=== PATIENT | male | born 1940 | race Caucasian/White ===

== ENCOUNTER 2017-07-05 07:48 | Emergency (ER) | payer MEDICARE ==
[~2017-07-05] VITALS: Ht 175.3 cm; Wt 70.0 kg
[~2017-07-05 07:48] MED LIST: LISI-360 PO
[2017-07-05 07:56] VITALS: BP 158/81; PULSE 68; RESP 18; TEMP 97.9; O2SAT 97
--- NOTE | 2017-07-05 08:43 | RADRPT ---
EXAM DATE/TIME: 07/05/2017 08:20 [facility] COMPARISON: CT BRAIN W/O CONTRAST, August 25, 2013, 17:18. INDICATIONS : Fall, left eye hematoma. Increased confusion. RADIATION DOSE: 34.60 CTDIvol (mGy) MEDICAL HISTORY : Cardiovascular disease. Hypertension. SURGICAL HISTORY : None. ENCOUNTER: Initial ACUITY: 2 days PAIN SCALE: 5/10 LOCATION: Left cranial TECHNIQUE: Multiple contiguous axial images were obtained of the head. Using automated exposure control and adj ustment of the mA and/or kV according to patient size, radiation dose was kept as low as reasonably a chievable to obtain optimal diagnostic quality images. DICOM format image data is available electro nically for review and comparison. FINDINGS: CEREBRUM: The ventricles are mildly prominent for age. However, they appear to be about the same compared to th e prior exam from 2012. No evidence of midline shift, mass lesion, hemorrhage or acute infarction. T here is a stable old infarct in the right basal ganglia. No extra-axial fluid collections are seen. T here is bilateral chronic white matter changes. There is an area of decreased density in the posterio r left parietal lobe just posterior to the posterior horn of the lateral left ventricle. This is most likely an old area of infarction. POSTERIOR FOSSA: The cerebellum and brainstem are intact. The 4th ventricle is midline. The cerebellopontine angle i s unremarkable. EXTRACRANIAL: The visualized portion of the orbits is intact. Focal soft tissue swelling of the scalp overlying the left forehead. SKULL: The calvaria is intact. No evidence of skull fracture. CONCLUSION: 1. No acute intracranial hemorrhage. 2. Bilateral cortical atrophy with mild prominence of the ventricles without significant change pino red to 2013. 3. Stable old infarct involving the right basal ganglia. 4. Area of decreased density just posterior to the posterior horn of the left lateral ventricle sugge stive of an old infarct. If clinically indicated, an MRI of the brain can be performed on a nonemerge outpatient basis for further evaluation. Akash Barba MD on July 05, 2017 at 8:33 Board Certified Radiologist. This report was verified electronically.
--- NOTE | 2017-07-05 08:51 | RADRPT ---
EXAM DATE/TIME: 07/05/2017 08:20 [facility] COMPARISON: No previous studies available for comparison. INDICATIONS : Fall, left eye hamatoma. RADIATION DOSE: 16.68 CTDIvol (mGy) MEDICAL HISTORY : Cardiovascular disease. Hypertension. SURGICAL HISTORY : None. ENCOUNTER: Initial ACUITY: 2 days PAIN SCALE: 5/10 LOCATION: neck TECHNIQUE: Volumetric scanning of the cervical spine was performed. Multiplanar reconstructions in the sagittal, coronal and oblique axial planes were performed. Using automated exposure control and adjustment o f the mA and/or kV according to patient size, radiation dose was kept as low as reasonably achievable to obtain optimal diagnostic quality images. DICOM format image data is available electronically f or review and comparison. FINDINGS: VERTEBRAE: There are degenerative changes involving the mid to lower cervical spine. There is mild anterior subl uxation of C3 over C4 by 2 mm. There is disc space narrowing at C5-6. No acute bony fractures are dem onstrated. C2-C3: The bony spinal canal is normal in size. No evidence of disc bulge or herniation.. Mild narrowing of the left neural foramina with bilateral facet arthritis. C3-C4: The bony spinal canal is normal in size. No evidence of disc bulge or herniation. Bilateral facet a rthritis, left greater than right narrowing of the neural foramina bilaterally. C4-C5: The bony spinal canal is normal in size. No evidence of disc bulge or herniation. Bilateral facet ar thritis with narrowing of the right neural foramina. C5-C6: Broad-based bulging disc osteophyte complex. Mild narrowing of the neural foramina bilaterally. C6-C7: The bony spinal canal is normal in size. No evidence of disc bulge or herniation. The neural forami na are bilaterally patent. Right-sided facet arthritis. C7-T1: The bony spinal canal is normal in size. No evidence of disc bulge or herniation. The neural forami na are bilaterally patent. CONCLUSION: 1. No acute bony fracture. 2. Primary bony degenerative changes throughout the cervical spine with disc degeneration and disc sp freeman narrowing at C5-6. 3. Mild anterior spondylolisthesis of C3 over C4 by 2 mm. 4. Facet arthritis at multiple levels. Akash Barba MD on July 05, 2017 at 8:46 Board Certified Radiologist. This report was verified electronically.
--- NOTE | 2017-07-05 08:51 | PD ---
HPI Chief Complaint: Fall Time Seen by Provider: 08:03 Travel History International Travel<30 days: No Contact w/Intl Traveler<30days: No Traveled to known affect area: No History of Present Illness HPI This is a 77-year-old male who presents to the emergency department having had a fall yesterday hitting his face. He is chronically homeless. He denies alcohol use. He denies any pain however people at the place where he lives report that he is more confused than normal. Patient provides limited history. PFSH Past Medical History Cancer: No Cardiovascular Problems: Yes Endocrine: No Gastrointestinal Disorders: No Genitourinary: No Hypertension: Yes (no meds) Implanted Vascular Access Dvce: No Musculoskeletal: No Neurologic: No Psychiatric: No Respiratory: No Immunizations Current: No Myocardial Infarction: Yes (1998) Past Surgical History Other Surgery: Yes (TEETH PULLED OUT) Social History Alcohol Use: No Tobacco Use: Yes (2PPD) Substance Use: No Allergies-Medications (Allergen,Severity, Reaction): Coded Allergies: milk (Unverified Allergy, Severe, Anaphylaxis, 07/05/17) SHORTNESS OF BREATH Reported Meds & Prescriptions Reported Meds & Active Scripts Active No Active Prescriptions or Reported Medications Review of Systems ROS Limitations: Poor Historian Physical Exam Narrative GENERAL: Disheveled SKIN: Crusted blood in both nares, infraorbital ecchymoses affecting the left eye. Ecchymoses involving the left third digit. HEAD: Atraumatic. Normocephalic. EYES: Pupils equal and round. No injection or drainage. ENT: Moist mucous membranes NECK: Trachea midline. Lower cervical spine tenderness. CARDIOVASCULAR: Regular rate and rhythm. No murmur appreciated. RESPIRATORY: Clear to auscultation. Breath sounds equal bilaterally. GASTROINTESTINAL: Abdomen soft, non-tender, nondistended. MUSCULOSKELETAL: Swelling and pain with range of motion at the DIP and PIP of the third digit on the left hand. NEUROLOGICAL: Oriented to person and place but not time. No obvious cranial nerve deficits. Moving all extremities. Data Data Last Documented VS Vital Signs Date Time Temp Pulse Resp B/P (MAP) Pulse Ox O2 Delivery O2 Flow Rate FiO2 07/05/17 08:04 66 18 97 Room Air 07/05/17 07:56 97.9 158/81 (106) Orders Orders Ct Brain W/O Iv Contrast(Rout) (07/05/17 ) Ct Cerv Spine W/O Contrast (07/05/17 ) Ct Facial Bones W/O Iv Cont (07/05/17 ) Hand, Complete ([id number]) (07/05/17 ) [facility] Medical Decision Making Medical Screen Exam Complete: Yes Emergency Medical Condition: Yes Interpretation(s) afebrile, no tachycardia, hypertension CT head, cervical spine and face no intracranial hemorrhage or facial or cervical spine fracture CT old infarct, likely the etiology of the patient's confusion Differential Diagnosis intracranial hemorrhage, cervical spine fracture, orbital floor fracture Narrative Course This is a 77 year old homeless male who had a fall yesterday. Pt. has evidence of significant facial injury on exam. CTs of the head, cervical spine and face are reassuring with no evidence of fracture or intracranial hemorrhage. He does look like he has an old stroke on CT. That's likely why he has a little bit of confusion by think this is the patient's baseline. I think he can safely be discharged home. Diagnosis Primary Impression: Closed head injury Qualified Codes: S09.90XA - Unspecified injury of head, initial encounter Patient Instructions: General Instructions Additional Instructions: If you develop severe worsening headache, persistent vomiting, numbness, weakness, difficulty walking or difficulty talking return to the emergency department immediately. Med/Other Pt SpecificInfo: No Change to Meds Scripts No Active Prescriptions or Reported Meds Disposition: 01 DISCHARGE HOME Condition: Stable Brittni Betts MD Jul 05, 2017 08:51
--- NOTE | 2017-07-05 08:53 | RADRPT ---
EXAM DATE/TIME: 07/05/2017 08:20 [facility] COMPARISON: CT FACIAL BONES W/O CONTRAST, March 16, 2012, 23:41. INDICATIONS : Fall, left eye hematoma. RADIATION DOSE: 63.72 CTDIvol (mGy) MEDICAL HISTORY : Cardiovascular disease. Hypertension. SURGICAL HISTORY : None. ENCOUNTER: Initial ACUITY: 2 days PAIN SCORE: 5/10 LOCATION: Left facial TECHNIQUE: Volumetric scanning of the facial bones was performed. Using automated exposure control and adjustme nt of the mA and/or kV according to patient size, radiation dose was kept as low as reasonably achiev able to obtain optimal diagnostic quality images. DICOM format image data is available electronicall y for review and comparison. FINDINGS: ORBITS: The orbital and infraorbital osseous structures are intact. The retroconal structures have a normal configuration. No radiopaque foreign bodies are seen. There is some focal soft tissue swelling over the left forehead. NASAL BONE: The nasal bone and maxillary spine are intact ZYGOMATIC ARCHES: Symmetric without evidence of fracture. SINUSES: The maxillary, ethmoid and frontal sinuses are intact. No air-fluid levels seen. NASAL CAVITY: Mild nasal septal deviation to the left. SOFT TISSUES: No radiopaque foreign bodies seen. No soft-tissue swelling is seen. INTRACRANIAL: No intracranial air seen. CRIBIFORM PLATE: Grossly intact. No significant changes compared to 2011. CONCLUSION: 1. No acute bony fracture. 2. Focal soft tissue swelling over the left forehead. Akash Barba MD on July 05, 2017 at 8:50 Board Certified Radiologist. This report was verified electronically.
--- NOTE | 2017-07-05 09:06 | RADRPT ---
EXAM DATE/TIME: 07/05/2017 08:39 [facility] COMPARISON: No previous studies available for comparison. INDICATIONS : Left hand pain. Third and fourth digit pain. Post fall. MEDICAL HISTORY : Left hand, first digit fracture. SURGICAL HISTORY : None. ENCOUNTER: Initial ACUITY: 1 day PAIN SCORE: 8/10 LOCATION: Left hand. FINDINGS: Three view examination of the left hand demonstrates a fracture involving the distal phalanx of the f irst finger. No definite joint dislocation is demonstrated. The proximal phalanx is grossly intact.. The rest of the bony structures are grossly intact. CONCLUSION: There is a fracture through the distal phalanx of the first finger. Akash Barba MD on July 05, 2017 at 9:03 Board Certified Radiologist. This report was verified electronically.
[2017-07-05 09:58] VITALS: BP 132/56; PULSE 75; RESP 16
== END 2017-07-05 10:13 | disposition home or self-care (01) ==
LOC: NEPC 07:48
DX: S09.90XA Unspecified injury of head, initial encounter (principal); S62.522D Displaced fracture of distal phalanx of left thumb, subsequent encounter for fracture with routine healing; I10 Essential (primary) hypertension; F17.200 Nicotine dependence, unspecified, uncomplicated; Z86.79 Personal history of other diseases of the circulatory system; Z59.0 Homelessness; W19.XXXA Unspecified fall, initial encounter; X58.XXXD Exposure to other specified factors, subsequent encounter
CPT/HCPCS: 70450; 70486; 72125; 73130; 99285

== ENCOUNTER 2017-07-05 14:38 | Emergency (ER) | payer MEDICARE ==
[2017-07-05 14:49] VITALS: BP 138/62; PULSE 77; RESP 16; TEMP 98.4; O2SAT 98
--- NOTE | 2017-07-05 15:45 | PD ---
Physical Exam Time Seen by Provider: 15:43 Narrative 77-year-old male presents with complaint of left forearm skin tear and possible left knee abrasion. He was seen this morning, discharge, and tripped and fell in the parking lot. He denies hitting his head or loss of consciousness. Patient seen in triage. Vital signs reviewed. Patient awaiting bed placement. Data Data Last Documented VS Vital Signs Date Time Temp Pulse Resp B/P (MAP) Pulse Ox O2 Delivery O2 Flow Rate FiO2 07/05/17 14:49 98.4 77 16 138/62 (87) 98 MDM Supervised Visit with MUNDO: No Scripts No Active Prescriptions or Reported Meds Kendra Aldrich Jul 05, 2017 15:45
== END 2017-07-05 17:45 | disposition left against medical advice (07) ==
LOC: NEDAMB 14:38
DX: S51.812A Laceration without foreign body of left forearm, initial encounter (principal); W01.0XXA Fall on same level from slipping, tripping and stumbling without subsequent striking against object, initial encounter; Y92.481 Parking lot as the place of occurrence of the external cause
CPT/HCPCS: 99281

== ENCOUNTER 2017-07-06 08:31 | Emergency (ER) | payer MEDICARE ==
[~2017-07-06] VITALS: Ht 175.3 cm; Wt 65.0 kg
[2017-07-06 09:39] VITALS: BP 138/61; PULSE 60; RESP 18; TEMP 97.7; O2SAT 98
--- NOTE | 2017-07-06 09:53 | PD ---
HPI Chief Complaint: Fall Time Seen by Provider: 09:52 Travel History International Travel<30 days: No Contact w/Intl Traveler<30days: No Traveled to known affect area: No History of Present Illness HPI 77-year-old male came to the emergency room since he fell and injured his face yesterday he thinks. Patient was in the emergency room yesterday for the exact same thing when CAT scan of his head face and cervical spine was done. There was no acute injury noticed on the CAT scan. Patient was discharged home. Currently he is awake and answering questions appropriately. Vital signs are stable. Patient is homeless. He does not seem to recall the exact time and circumstances when he fell. He does say that he has fallen several times in past 2 weeks. He has a history of stroke. [facility] Past Medical History Narrative Medical List of his past medical, surgical, social and family history is reviewed from the nursing note. Cancer: No Cardiovascular Problems: Yes Cerebrovascular Accident: Yes Endocrine: No Gastrointestinal Disorders: No Genitourinary: No Hypertension: Yes (no meds) Implanted Vascular Access Dvce: No Musculoskeletal: No Neurologic: No Psychiatric: No Respiratory: No Immunizations Current: No Myocardial Infarction: Yes (1998) Past Surgical History Other Surgery: Yes (TEETH PULLED OUT) Social History Alcohol Use: No Tobacco Use: Yes (2PPD) Substance Use: No Allergies-Medications (Allergen,Severity, Reaction): Coded Allergies: milk (Unverified Allergy, Severe, Anaphylaxis, 07/09/17) SHORTNESS OF BREATH Comments List of his allergies reviewed from the nursing note. Reported Meds & Prescriptions Reported Meds & Active Scripts Active No Active Prescriptions or Reported Medications Narrative Medication List of his home medications reviewed from the nursing note. Review of Systems Except as stated in HPI: all other systems reviewed are Neg General / Constitutional: Positive: Other (frequent falls) HENT: Positive: Other (nasal injury from the fall) Physical Exam Narrative GENERAL: Disheveled, poor personal hygiene, mild distress, dried blood on the face SKIN: Focused skin assessment warm/dry. HEAD: Atraumatic. Normocephalic. EYES: Pupils equal and round. No scleral icterus. No injection or drainage. Dried blood on the nose and in the nostril bilaterally. Old facial bruising ENT: No nasal bleeding or discharge. Mucous membranes pink and moist. NECK: Trachea midline. No JVD. CARDIOVASCULAR: Regular rate and rhythm. No murmur appreciated. RESPIRATORY: No accessory muscle use. Clear to auscultation. Breath sounds equal bilaterally. GASTROINTESTINAL: Abdomen soft, non-tender, nondistended. Hepatic and splenic margins not palpable. MUSCULOSKELETAL: No obvious deformities. No clubbing. No cyanosis. No edema. Left hand bruising NEUROLOGICAL: Awake and alert. No obvious cranial nerve deficits. Motor grossly within normal limits. Normal speech. PSYCHIATRIC: Appropriate mood and affect; insight and judgment normal. Data Data Last Documented VS Orders Orders Electrocardiogram (07/06/17 09:58) Prothrombin Time / Inr (Pt) (07/06/17 09:58) Complete Blood Count With Diff (07/06/17 09:58) Basic Metabolic Panel (Bmp) (07/06/17 09:58) Creatine Kinase (Cpk) (07/06/17 09:58) Troponin I (07/06/17 09:58) Chest, Single Ap (07/06/17 09:58) Ecg Monitoring (07/06/17 09:58) Iv Access Insert/Monitor (07/06/17 09:58) Oximetry (07/06/17 09:58) Sodium Chloride 0.9% Flush (Ns Flush) (07/06/17 10:00) Sodium Chlor 0.9% 1000 Ml Inj (Ns 1000 M (07/06/17 10:00) Alcohol (Ethanol) (07/06/17 09:58) Ed Discharge Order (07/06/17 12:31) Labs Laboratory Tests Test 07/06/17 10:10 White Blood Count 7.5 TH/MM3 Red Blood Count 4.49 MIL/MM3 Hemoglobin 14.2 GM/DL Hematocrit 40.6 % Mean Corpuscular Volume 90.5 FL Mean Corpuscular Hemoglobin 31.6 PG Mean Corpuscular Hemoglobin Concent 35.0 % Red Cell Distribution Width 13.7 % Platelet Count 167 TH/MM3 Mean Platelet Volume 7.9 FL Neutrophils (%) (Auto) 70.7 % Lymphocytes (%) (Auto) 18.3 % Monocytes (%) (Auto) 9.2 % Eosinophils (%) (Auto) 0.6 % Basophils (%) (Auto) 1.2 % Neutrophils # (Auto) 5.3 TH/MM3 Lymphocytes # (Auto) 1.4 TH/MM3 Monocytes # (Auto) 0.7 TH/MM3 Eosinophils # (Auto) 0.0 TH/MM3 Basophils # (Auto) 0.1 TH/MM3 CBC Comment DIFF FINAL Differential Comment Prothrombin Time 11.0 SEC Prothromb Time International Ratio 1.0 RATIO Blood Urea Nitrogen 19 MG/DL Creatinine 0.89 MG/DL Random Glucose 73 MG/DL Calcium Level 9.1 MG/DL Sodium Level 141 MEQ/L Potassium Level 4.0 MEQ/L Chloride Level 107 MEQ/L Carbon Dioxide Level 22.8 MEQ/L Anion Gap 11 MEQ/L Estimat Glomerular Filtration Rate 83 ML/MIN Total Creatine Kinase 304 U/L Troponin I LESS THAN 0.02 NG/ML Ethyl Alcohol Level LESS THAN 3 MG/DL MDM Medical Decision Making Medical Screen Exam Complete: Yes Emergency Medical Condition: Yes Medical Record Reviewed: Yes Interpretation(s) Twelve-lead EKG was reviewed by me. Normal sinus rhythm, left axis deviation, bradycardia, lateral T wave inversion, QT prolongation. Heart rate of 56 bpm. Differential Diagnosis Syncope, electrolyte abnormalities, dehydration Narrative Course 11:17 AM blood test results of back and within normal limits. Since patient already had CAT scans done yesterday I have not repeated any of those. I'm going to discharge him home. Procedures EKG Prior to Arrival: No Diagnosis Primary Impression: Fall Qualified Codes: W19.XXXD - Unspecified fall, subsequent encounter Additional Impression: Needs smoking cessation education Referrals: Primary Care Physician Additional Instructions: Return to the ER if the condition worsens or any other new concerns. Otherwise follow-up with your primary care doctor. Med/Other Pt SpecificInfo: No Change to Meds Scripts No Active Prescriptions or Reported Meds Disposition: 01 DISCHARGE HOME Condition: Stable Sharri Guajardo MD Jul 06, 2017 09:53
[2017-07-06] MEDS ORDERED: SODIUM CHLOR 0.9% 1000 ML INJ 1,000 ML IV ONE (10:00)
[2017-07-06] MEDS ORDERED: SODIUM CHLORIDE 0.9% FLUSH 10 ML FLUSH IVF PRN (10:00)
--- NOTE | 2017-07-06 10:30 | RADRPT ---
EXAM DATE/TIME: 07/06/2017 10:02 [facility] COMPARISON: CHEST SINGLE AP, August 31, 2015, 12:49. INDICATIONS : Syncopal episode with fall. MEDICAL HISTORY : Myocardial infarction. Hypertension smoker. CVA. SURGICAL HISTORY : None. ENCOUNTER: Initial ACUITY: 1 day PAIN SCORE: 0/10 LOCATION: chest FINDINGS: A single view of the chest demonstrates the lungs to be symmetrically aerated without evidence of mas s, infiltrate or effusion. Lungs are hyperinflated bilaterally. The cardiomediastinal contours are un remarkable. Osseous structures are intact. CONCLUSION: Hyperinflation suggesting COPD. No acute infiltrate or effusion. Heri Orr Jr., MD on July 06, 2017 at 10:27 Board Certified Radiologist. This report was verified electronically.
[2017-07-06 10:48] LABS: AUTOMATED NEUTROPHIL # 5.3 TH/MM3 (1.8-7.7); BASOPHIL # 0.1 TH/MM3 (0-0.2); BASOPHIL % 1.2 % (0.0-2.0); EOSINOPHIL % 0.6 % (0.0-4.0); HEMATOCRIT 40.6 % (39.0-51.0); HEMO FLAGS DIFF FINAL; LYMPH % 18.3 % (9.0-44.0); LYMPHOCYTE # 1.4 TH/MM3 (1.0-4.8); MEAN CELL VOLUME 90.5 FL (80.0-100.0); MEAN CORPUSCULAR HEMOGLOBIN 31.6 PG (27.0-34.0); MONO % 9.2 % (0.0-8.0); NEUT % 70.7 % (16.0-70.0); PLATELET COUNT 167 TH/MM3 (150-450); RED BLOOD COUNT 4.49 MIL/MM3 (4.50-5.90); RED CELL DISTRIBUTION WIDTH 13.7 % (11.6-17.2); WHITE BLOOD COUNT 7.5 TH/MM3 (4.0-11.0)
[2017-07-06 11:02] LABS: ANION GAP 11 MEQ/L (5-15); BICARBONATE 22.8 MEQ/L (21.0-32.0); BLOOD UREA NITROGEN 19 MG/DL (7-18); CHLORIDE 107 MEQ/L (98-107); GLOMERULAR FILTRATION RATE 83 ML/MIN (>89); SODIUM (NA) 141 MEQ/L (136-145)
[2017-07-06 11:06] LABS: CREATINE KINASE 304 U/L (39-308)
[2017-07-06 11:07] LABS: ALCOHOL LESS THAN 3 MG/DL (0-5)
[2017-07-06 11:16] VITALS: RESP 18; O2SAT 98
--- NOTE | 2017-07-06 21:31 | EKG ---
Date Performed: 07/06/2017 Time Performed: 10:16:01 PTAGE: 77 years EKG: SINUS BRADYCARDIA INCOMPLETE RIGHT BUNDLE BRANCH BLOCK LEFT ANTERIOR FASCICULAR BLOCK SEPTA L MYOCARDIAL INFARCTION LATERAL ST-T CHANGES ABNORMAL ECG PREVIOUS TRACING : 08/30/2015 11.22 Compared to the previous tracing ST-T changes are new DOCTOR: Almas Toure Interpretating Date/Time 07/06/2017 21:30:38
== END 2017-07-06 13:10 | disposition home or self-care (01) ==
LOC: NEPC 08:31
DX: S00.83XA Contusion of other part of head, initial encounter (principal); S60.222A Contusion of left hand, initial encounter; R94.31 Abnormal electrocardiogram [ECG] [EKG]; I10 Essential (primary) hypertension; I25.2 Old myocardial infarction; F17.200 Nicotine dependence, unspecified, uncomplicated; Z91.81 History of falling; Z86.79 Personal history of other diseases of the circulatory system; W19.XXXA Unspecified fall, initial encounter
CPT/HCPCS: 71010; 80048; 80307; 82550; 84484; 85025; 85610; 93005; 96360; 99285; J7030

== ENCOUNTER 2017-07-09 23:42 | Emergency (ER) | payer MEDICARE ==
[~2017-07-09] VITALS: Ht 175.3 cm; Wt 80.0 kg
[2017-07-09 23:52] VITALS: BP 168/72; PULSE 68; RESP 17; TEMP 97.8; O2SAT 98
--- NOTE | 2017-07-10 02:03 | RADRPT ---
EXAM DATE/TIME: 07/10/2017 01:22 [facility] COMPARISON: No previous studies available for comparison. INDICATIONS : Chest and facial pain x 4 days. MEDICAL HISTORY : Diabetes mellitus type II. Hypertension Myocardial infarction. CVA SURGICAL HISTORY : None. ENCOUNTER: Initial ACUITY: 4 - 6 days PAIN SCORE: 7/10 LOCATION: Bilateral chest FINDINGS: A single view of the chest demonstrates the lungs to be symmetrically aerated without evidence of mas s, infiltrate or effusion. The cardiomediastinal contours are unremarkable. Osseous structures are intact. CONCLUSION: No acute disease. Marcial Navarro MD on July 10, 2017 at 2:02 Board Certified Radiologist. This report was verified electronically.
[2017-07-10 02:25] LABS: AUTOMATED NEUTROPHIL # 5.4 TH/MM3 (1.8-7.7); BASOPHIL # 0.1 TH/MM3 (0-0.2); BASOPHIL % 0.9 % (0.0-2.0); EOSINOPHIL # 0.1 TH/MM3 (0-0.4); EOSINOPHIL % 0.9 % (0.0-4.0); HEMATOCRIT 38.3 % (39.0-51.0); HEMO FLAGS DIFF FINAL; LYMPH % 22.1 % (9.0-44.0); LYMPHOCYTE # 1.8 TH/MM3 (1.0-4.8); MEAN CELL VOLUME 89.6 FL (80.0-100.0); MEAN CORPUSCULAR HEMOGLOBIN 31.3 PG (27.0-34.0); MEAN CORPUSCULAR HGB CONC 34.9 % (32.0-36.0); MONO % 11.1 % (0.0-8.0); PLATELET COUNT 201 TH/MM3 (150-450); RED BLOOD COUNT 4.27 MIL/MM3 (4.50-5.90); RED CELL DISTRIBUTION WIDTH 13.6 % (11.6-17.2); WHITE BLOOD COUNT 8.3 TH/MM3 (4.0-11.0)
[2017-07-10 02:34] LABS: APTT (PATIENT) 25.9 SEC (24.3-30.1); PROTHROMBIN TIME - PATIENT 10.9 SEC (9.8-11.6)
[2017-07-10 02:44] LABS: ALT (GPT) 17 U/L (12-78); ANION GAP 6 MEQ/L (5-15); AST (GOT) 19 U/L (15-37); BICARBONATE 29.3 MEQ/L (21.0-32.0); BLOOD UREA NITROGEN 10 MG/DL (7-18); CHLORIDE 106 MEQ/L (98-107); GLOMERULAR FILTRATION RATE 83 ML/MIN (>89); POTASSIUM 3.2 MEQ/L (3.5-5.1); SODIUM (NA) 141 MEQ/L (136-145)
[2017-07-10 02:48] LABS: ALKALINE PHOSPHATASE 94 U/L (45-117); TOTAL BILIRUBIN ADULT 0.9 MG/DL (0.2-1.0)
[2017-07-10] MEDS ORDERED: POTASSIUM CHLORIDE 10 MEQ CONTROLLED RELEASE TAB PO ONE (03:00)
--- NOTE | 2017-07-10 05:09 | PD ---
HPI Chief Complaint: Facial Pain or Swelling Time Seen by Provider: 00:43 Travel History International Travel<30 days: No Contact w/Intl Traveler<30days: No Traveled to known affect area: No History of Present Illness HPI Patient is a 77 year old male who has been here multiple times, who comes in complaining of "not feeling well.' Per EMS, he was found sleeping on a bench and a bystander called --1. He says he has pain all over, in his chest, abdomen, limbs. He really doesn't provide much history and just wants to sleep. PFSH Past Medical History Cancer: No Cardiovascular Problems: Yes Cerebrovascular Accident: Yes Diabetes: Yes Patient Takes Glucophage: No Endocrine: No Gastrointestinal Disorders: No Genitourinary: No Hypertension: Yes (no meds) Implanted Vascular Access Dvce: No Musculoskeletal: No Neurologic: No Psychiatric: No Respiratory: Yes Immunizations Current: No Myocardial Infarction: Yes (1998) Past Surgical History Other Surgery: Yes (TEETH PULLED OUT) Social History Alcohol Use: No Tobacco Use: Yes (2PPD) Substance Use: No Allergies-Medications (Allergen,Severity, Reaction): Coded Allergies: milk (Unverified Allergy, Severe, Anaphylaxis, 07/09/17) SHORTNESS OF BREATH Reported Meds & Prescriptions Reported Meds & Active Scripts Active No Active Prescriptions or Reported Medications Review of Systems ROS Limitations: Uncooperative Physical Exam Narrative GENERAL: Sleeping comfortably, awakens easily. In no acute distress. SKIN: Focused skin assessment warm/dry. HEAD: Atraumatic. Normocephalic. EYES: Pupils equal and round. No scleral icterus. No injection or drainage. ENT: Dried blood at the nares. Mucous membranes pink and moist. NECK: Trachea midline. No JVD. CARDIOVASCULAR: Regular rate and rhythm. No murmur appreciated. RESPIRATORY: No accessory muscle use. Clear to auscultation. Breath sounds equal bilaterally. GASTROINTESTINAL: Abdomen soft, non-tender, nondistended. MUSCULOSKELETAL: No obvious deformities. No clubbing. No cyanosis. No edema. NEUROLOGICAL: Awake and alert. No obvious cranial nerve deficits. Motor grossly within normal limits. Normal speech. PSYCHIATRIC: Appropriate mood and affect; insight and judgment normal. Data Data Last Documented VS Vital Signs Date Time Temp Pulse Resp B/P (MAP) Pulse Ox O2 Delivery O2 Flow Rate FiO2 07/10/17 00:00 67 17 07/09/17 23:52 97.8 168/72 (104) 98 Orders Orders Electrocardiogram (07/10/17 01:18) Complete Blood Count With Diff (07/10/17 01:18) Comprehensive Metabolic Panel (07/10/17 01:18) Prothrombin Time / Inr (Pt) (07/10/17 01:18) Act Partial Throm Time (Ptt) (07/10/17 01:18) Troponin I (07/10/17 01:18) Lipase (07/10/17 01:18) Chest, Single Ap (07/10/17 01:18) Potassium Chloride (Kcl) (07/10/17 03:00) Ed Discharge Order (07/10/17 05:20) Labs Laboratory Tests Test 07/10/17 02:18 White Blood Count 8.3 TH/MM3 Red Blood Count 4.27 MIL/MM3 Hemoglobin 13.4 GM/DL Hematocrit 38.3 % Mean Corpuscular Volume 89.6 FL Mean Corpuscular Hemoglobin 31.3 PG Mean Corpuscular Hemoglobin Concent 34.9 % Red Cell Distribution Width 13.6 % Platelet Count 201 TH/MM3 Mean Platelet Volume 7.9 FL Neutrophils (%) (Auto) 65.0 % Lymphocytes (%) (Auto) 22.1 % Monocytes (%) (Auto) 11.1 % Eosinophils (%) (Auto) 0.9 % Basophils (%) (Auto) 0.9 % Neutrophils # (Auto) 5.4 TH/MM3 Lymphocytes # (Auto) 1.8 TH/MM3 Monocytes # (Auto) 0.9 TH/MM3 Eosinophils # (Auto) 0.1 TH/MM3 Basophils # (Auto) 0.1 TH/MM3 CBC Comment DIFF FINAL Differential Comment Prothrombin Time 10.9 SEC Prothromb Time International Ratio 1.0 RATIO Activated Partial Thromboplast Time 25.9 SEC Blood Urea Nitrogen 10 MG/DL Creatinine 0.89 MG/DL Random Glucose 92 MG/DL Total Protein 6.2 GM/DL Albumin 3.4 GM/DL Calcium Level 8.2 MG/DL Alkaline Phosphatase 94 U/L Aspartate Amino Transf (AST/SGOT) 19 U/L Alanine Aminotransferase (ALT/SGPT) 17 U/L Total Bilirubin 0.9 MG/DL Sodium Level 141 MEQ/L Potassium Level 3.2 MEQ/L Chloride Level 106 MEQ/L Carbon Dioxide Level 29.3 MEQ/L Anion Gap 6 MEQ/L Estimat Glomerular Filtration Rate 83 ML/MIN Troponin I 0.02 NG/ML Lipase 275 U/L MDM Medical Decision Making Medical Screen Exam Complete: Yes Emergency Medical Condition: Yes Medical Record Reviewed: Yes Interpretation(s) ECG shows NSR at 64, no ST elevation, left anterior fascicular block. Differential Diagnosis dehydration vs malingering vs ACS Narrative Course Patient is a 77-year-old male brought in by EMS after he was found sitting on a bench. He says everything hurts. IV established, labs sent. Labs show no acute abnormalities other than a potassium of 3.2. This was replaced. On reassessment, patient says he is ready to go home. He is offered admission for possible chest pain, however he declines at this time. He is advised follow-up with a primary doctor. Advised to return to the ED as needed for any worsening symptoms. Diagnosis Primary Impression: Myalgia Referrals: [facility] call for appointment Patient Instructions: General Instructions, Musculoskeletal Pain (ED) Additional Instructions: Drink plenty of fluids. Follow-up in the is a clinic. Return to the ED as needed for any worsening symptoms. Scripts No Active Prescriptions or Reported Meds Disposition: 01 DISCHARGE HOME Condition: Stable Angela Starkey MD Jul 10, 2017 05:08
--- NOTE | 2017-07-10 23:12 | EKG ---
Date Performed: 07/10/2017 Time Performed: 02:24:06 PTAGE: 77 years EKG: Sinus rhythm INCOMPLETE RIGHT BUNDLE BRANCH BLOCK LEFT ANTERIOR FASCICULAR BLOCK MODERATE ST DEPRESSION ABNORMAL ECG PREVIOUS TRACING : 07/06/2017 10.16 DOCTOR: Andrea Cooper Interpretating Date/Time 07/10/2017 23:11:18
== END 2017-07-10 05:42 | disposition home or self-care (01) ==
LOC: NEPC 23:42
DX: M79.1 Myalgia (principal); E11.9 Type 2 diabetes mellitus without complications; I10 Essential (primary) hypertension; R94.31 Abnormal electrocardiogram [ECG] [EKG]; Z72.0 Tobacco use; Z86.73 Personal history of transient ischemic attack (TIA), and cerebral infarction without residual deficits
CPT/HCPCS: 71010; 80053; 83690; 84484; 85025; 85610; 85730; 93005

== ENCOUNTER 2017-07-17 14:05 | Inpatient (IN) | payer MEDICARE ==
[~2017-07-17] VITALS: Ht 175.3 cm; Wt 68.3 kg
[2017-07-17 14:13] VITALS: BP 175/94; PULSE 92; RESP 16; TEMP 100.6; O2SAT 95
[2017-07-17] MEDS ORDERED: ACETAMINOPHEN 500 MG CPLT PO ONE (14:45)
[2017-07-17] MEDS ORDERED: SODIUM CHLOR 0.9% 1000 ML INJ 1,000 ML IV ONE (14:45)
--- NOTE | 2017-07-17 15:11 | RADRPT ---
EXAM DATE/TIME: 07/17/2017 14:57 [facility] COMPARISON: CHEST SINGLE AP, July 10, 2017, 1:22. INDICATIONS : Altered mental status MEDICAL HISTORY : Cardiovascular disease. Hypertension Myocardial infarction. CVA SURGICAL HISTORY : None. ENCOUNTER: Initial ACUITY: 1 day PAIN SCORE: Non-responsive. LOCATION: Bilateral chest FINDINGS: The right lung is clear. There is mild patchy non-consolidative infiltrate in the left lower lung wi thout loss of delineation of the left hemidiaphragm. The heart is normal in size. CONCLUSION: Small infiltrate left lung base. Heri Jj MD on July 17, 2017 at 15:04 Board Certified Radiologist. This report was verified electronically.
[2017-07-17 15:43] LABS: BLOOD, URINE NEG (NEG); GLUCOSE,URINE NEG (NEG); GRANULAR CAST, URINE 3 /lpf; HYALINE CAST, URINE 7 /lpf (RARE); KETONE, URINE TRACE mg/dL (NEG); MUCUS URINE FEW /lpf (OCC); NITRITE,URINE NEG (NEG); PH, URINE 6.5 (5.0-8.5); URINE COLOR YELLOW (YELLW/STRAW)
[2017-07-17 15:44] LABS: COMMENT (UR) CATH-CULTURE IND; CULTURE IF INDICATED CATH CULTURE IND
[2017-07-17 15:45] LABS: APTT (PATIENT) 27.5 SEC (24.3-30.1); AUTOMATED NEUTROPHIL # 9.3 TH/MM3 (1.8-7.7); BASOPHIL % 0.3 % (0.0-2.0); EOSINOPHIL # 0.1 TH/MM3 (0-0.4); EOSINOPHIL % 0.7 % (0.0-4.0); HEMATOCRIT 33.8 % (39.0-51.0); HEMO FLAGS DIFF FINAL; LYMPH % 9.1 % (9.0-44.0); MEAN CELL VOLUME 88.8 FL (80.0-100.0); MEAN CORPUSCULAR HEMOGLOBIN 31.2 PG (27.0-34.0); MEAN CORPUSCULAR HGB CONC 35.2 % (32.0-36.0); MONO % 7.8 % (0.0-8.0); NEUT % 82.1 % (16.0-70.0); PLATELET COUNT 265 TH/MM3 (150-450); PROTHROMBIN TIME - PATIENT 10.8 SEC (9.8-11.6); RED CELL DISTRIBUTION WIDTH 13.6 % (11.6-17.2); WHITE BLOOD COUNT 11.3 TH/MM3 (4.0-11.0)
[2017-07-17 15:50] LABS: ALT (GPT) 22 U/L (12-78); ANION GAP 7 MEQ/L (5-15); AST (GOT) 29 U/L (15-37); BICARBONATE 27.6 MEQ/L (21.0-32.0); BLOOD UREA NITROGEN 19 MG/DL (7-18); CHLORIDE 105 MEQ/L (98-107); GLOMERULAR FILTRATION RATE 83 ML/MIN (>89); POTASSIUM 3.3 MEQ/L (3.5-5.1); SODIUM (NA) 140 MEQ/L (136-145)
[2017-07-17 15:55] LABS: ALKALINE PHOSPHATASE 84 U/L (45-117); CREATINE KINASE 200 U/L (39-308); TOTAL BILIRUBIN ADULT 0.5 MG/DL (0.2-1.0)
[2017-07-17 16:07] LABS: CKMB 2.4 NG/ML (0.5-3.6)
[2017-07-17] MEDS ORDERED: IOHEXOL 350 MG/ML 10 ML VIAL (for RAD DIAG) IVCONTRAST ONE (16:16)
[2017-07-17] MEDS ORDERED: AZITHROMYCIN INJ 500 MG in SODIUM CHLOR 0.9% 250 ML INJ 250 ML IV STA (16:29)
[2017-07-17] MEDS ORDERED: CEFEPIME INJ 2,000 MG in SODIUM CHLORIDE 0.9% INJ 100 ML IV STA (16:29)
--- NOTE | 2017-07-17 16:48 | RADRPT ---
EXAM DATE/TIME: 07/17/2017 16:12 [facility] COMPARISON: CT BRAIN W/O CONTRAST, August 25, 2013, 17:18. CT BRAIN W/O CONTRAST, July 05, 2017, 8:20. INDICATIONS : Dizziness RADIATION DOSE: 56.35 CTDIvol (mGy) MEDICAL HISTORY : Cardiovascular disease. Hypertension. Cerebrovascular disease.CVA SURGICAL HISTORY : Non-responsive. ENCOUNTER: Initial ACUITY: 1 day PAIN SCALE: 1/10 LOCATION: cranial TECHNIQUE: Multiple contiguous axial images were obtained of the head. Using automated exposure control and adj ustment of the mA and/or kV according to patient size, radiation dose was kept as low as reasonably a chievable to obtain optimal diagnostic quality images. DICOM format image data is available electro nically for review and comparison. FINDINGS: CEREBRUM: The ventricles are mildly prominent for age. However, they appear to be about the same compared to th e prior exam from 2012. No evidence of midline shift, mass lesion, hemorrhage or acute infarction. T here is a stable old infarct in the right basal ganglia. No extra-axial fluid collections are seen. T here is bilateral chronic white matter changes. There is an area of decreased density in the posterio r left parietal lobe just posterior to the posterior horn of the lateral left ventricle. This is most likely an old area of infarction. POSTERIOR FOSSA: The cerebellum and brainstem are intact. The 4th ventricle is midline. The cerebellopontine angle i s unremarkable. EXTRACRANIAL: The visualized portion of the orbits is intact. Focal soft tissue swelling of the scalp overlying the left forehead. SKULL: The calvaria is intact. No evidence of skull fracture. CONCLUSION: No acute findings. Central atrophy with dilation of the ventricles, decreased attenuation in the sup ratentorial white matter and old infarction in the anterior right external capsule are all stable in appearance compared prior CT. Heri Jj MD on July 17, 2017 at 16:43 Board Certified Radiologist. This report was verified electronically.
[2017-07-17 16:55] VITALS: BP 143/66; PULSE 72; RESP 16; O2SAT 98
--- NOTE | 2017-07-17 17:06 | RADRPT ---
EXAM DATE/TIME: 07/17/2017 16:16 [facility] COMPARISON: No previous studies available for comparison. INDICATIONS : Abdominal pain. Constipation. IV CONTRAST: 80 cc Omnipaque 350 (iohexol) IV ORAL CONTRAST: No oral contrast ingested. RADIATION DOSE: 6.64 CTDIvol (mGy) MEDICAL HISTORY : Cardiovascular disease. Hypertension. Diabetes SURGICAL HISTORY : None. ENCOUNTER: Initial ACUITY: 1 day PAIN SCALE: 5/10 LOCATION: Bilateral mid abdomen. TECHNIQUE: Volumetric scanning of the abdomen and pelvis was performed. Using automated exposure control and ad justment of the mA and/or kV according to patient size, radiation dose was kept as low as reasonably achievable to obtain optimal diagnostic quality images. DICOM format image data is available electro nically for review and comparison. FINDINGS: LOWER LUNGS: Emphysematous changes in both lungs. Focal scarring laterally just above the left hemidiaphragm LIVER: Homogeneous density without lesion. There is no dilation of the biliary tree. No calcified gallston es. SPLEEN: Normal size without lesion. PANCREAS: Within normal limits. KIDNEYS: Normal in size and shape. There is no mass, stone or hydronephrosis. Benign-appearing 1.7 cm cyst in the lower pole of the left kidney ADRENAL GLANDS: Within normal limits. VASCULAR: There is no aortic aneurysm. BOWEL/MESENTERY: The stomach, small bowel, and colon demonstrate no acute abnormality. A few scattered diverticula of the sigmoid colon without colitis. Stool in the rectal vault. Nonobstructed bowel gas pattern. ABDOMINAL WALL: Within normal limits. RETROPERITONEUM: There is no lymphadenopathy. BLADDER: No wall thickening or mass. REPRODUCTIVE: Within normal limits. INGUINAL: There is no lymphadenopathy or hernia. MUSCULOSKELETAL: Within normal limits for patient age. CONCLUSION: 1. Bibasilar emphysematous changes with some scarring laterally just above the left hemidiaphragm. No confluent infiltrate. 2. Mild diverticular disease of the sigmoid without diverticulitis. Moderate amount of stool in the r ectal vault and distal colon possibly representing mild constipation. 3. Otherwise, I see no acute intraperitoneal or pelvic process to explain current clinical symptoms. Lorenzo Tyson MD on July 17, 2017 at 16:54 Board Certified Radiologist. This report was verified electronically.
--- NOTE | 2017-07-17 17:47 | PD ---
HPI Chief Complaint: GI Complaint Time Seen by Provider: 14:37 Travel History International Travel<30 days: No Contact w/Intl Traveler<30days: No Traveled to known affect area: No History of Present Illness HPI 77-year-old male presents to the ED via EMS for evaluation. Patient is unable to provide any meaningful history on presentation. When I ask him why he is at the emergency room. He states that "just woke up and I felt it." When I asked him what today's date is he says "last month." He denies any somatic complaints on presentation. Per EMS the patient was found lying in a field and multiple bystanders placed calls to 911. Patient endorses homelessness. This is a homeless 77-year-old male with past medical history significant for hypertension, possible seizure disorder and questionable history of CVA who was brought in to [facility] ED via EMS for evaluation. Patient is confused and is unable to provide any meaningful history. He denies any complaints at present. He denies any fever or chills. He denies any nausea, vomiting or abdominal pain. Denies any chest pain or shortness of breath. He denies any urinary complaints. He does state that he has not had a bowel movement in 3 or 4 days however patient informed the nurse earlier today in the ED that he had a good bowel movement this morning. Patient is homeless and was lying in a field. Reportedly, EMS was dispatched due to the police department receiving multiple 911 calls. In the ED, patient was found to have a temperature 100.6. Blood pressure slightly elevated 175/94. Head CT showed no acute findings. Chest x-ray shows small infiltrate left lung base. CT of abdomen and pelvis showed bibasilar emphysematous changes and mild diverticular disease without diverticulitis. There is also noted to be a moderate amount of stool in the rectal vault and distal colon possibly represent mild constipation. PFSH Past Medical History Hx Anticoagulant Therapy: No Cancer: No Cardiovascular Problems: Yes Chemotherapy: No Cerebrovascular Accident: Yes Diabetes: Yes (INFO FROM PT) Patient Takes Glucophage: No Endocrine: No Gastrointestinal Disorders: No Genitourinary: No Hypertension: Yes (no meds) Implanted Vascular Access Dvce: No Musculoskeletal: No Neurologic: No Psychiatric: No Respiratory: No Immunizations Current: No Myocardial Infarction: Yes (1998) Tetanus Vaccination: Unknown Past Surgical History Hysterectomy: No Other Surgery: Yes (TEETH PULLED OUT) Social History Alcohol Use: Yes Tobacco Use: Yes (2PPD) Substance Use: No Allergies-Medications (Allergen,Severity, Reaction): Coded Allergies: milk (Unverified Allergy, Severe, Anaphylaxis, 07/17/17) SHORTNESS OF BREATH Reported Meds & Prescriptions Reported Meds & Active Scripts Active No Active Prescriptions or Reported Medications Review of Systems Except as stated in HPI: all other systems reviewed are Neg Physical Exam Narrative GENERAL: Thin, disheveled, soiled white male in no acute distress. SKIN: Focused skin assessment warm/dry. Multiple small abrasions in various stages of healing without signs of infection. HEAD: Normocephalic. EYES: No scleral icterus. No injection or drainage. PERRLA. EOMI. NECK: Supple, trachea midline. No JVD or lymphadenopathy. CARDIOVASCULAR: Regular rate and rhythm without murmurs, gallops, or rubs. 2+ DP and radial pulses bilaterally. RESPIRATORY: Breath sounds clear and equal bilaterally. No accessory muscle use. GASTROINTESTINAL: Abdomen soft, nondistended. Diffusely tender. No palpable masses. MUSCULOSKELETAL: No cyanosis, or edema. Patient moves the extremities spontaneously. NEUROLOGICAL: Awake and alert. Cranial nerves II through XII intact. Motor and sensory grossly within normal limits. Five out of 5 muscle strength in all muscle groups. Normal speech. BACK: Nontender without obvious deformity. No CVA tenderness. Data Data Last Documented VS Vital Signs Date Time Temp Pulse Resp B/P (MAP) Pulse Ox O2 Delivery O2 Flow Rate FiO2 07/17/17 16:55 72 16 143/66 (91) 98 Room Air 07/17/17 14:13 100.6 Orders Orders Electrocardiogram (07/17/17 14:37) Complete Blood Count With Diff (07/17/17 14:37) Comprehensive Metabolic Panel (07/17/17 14:37) Prothrombin Time / Inr (Pt) (07/17/17 14:37) Act Partial Throm Time (Ptt) (07/17/17 14:37) Lactic Acid Sepsis Protocol (07/17/17 14:37) Lipase (07/17/17 14:37) Ckmb (Isoenzyme) Profile (07/17/17 14:37) Troponin I (07/17/17 14:37) Urinalysis - C+S If Indicated (07/17/17 14:37) Blood Culture (07/17/17 14:37) Chest, Single Ap (07/17/17 14:37) Blood Glucose (07/17/17 14:37) Ecg Monitoring (07/17/17 14:37) Iv Access Insert/Monitor (07/17/17 14:37) Oximetry (07/17/17 14:37) Oxygen Administration (07/17/17 14:37) Ct Abd/Pel W Iv Contrast(Rout) (07/17/17 14:37) Ct Brain W/O Iv Contrast(Rout) (07/17/17 14:37) Acetaminophen (Tylenol) (07/17/17 14:45) Sodium Chlor 0.9% 1000 Ml Inj (Ns 1000 M (07/17/17 14:45) Urine Culture (07/17/17 15:05) CKMB (07/17/17 15:08) CKMB% (07/17/17 15:08) Azithromycin Inj (Zithromax Inj) (07/17/17 16:29) Cefepime Inj (Maxipime Inj) (07/17/17 16:29) Drug Screen, Random Urine (07/17/17 17:35) Admit Order (Ed Use Only) (07/17/17 17:41) Labs Laboratory Tests Test 07/17/17 15:05 07/17/17 15:08 Urine Color YELLOW Urine Turbidity CLEAR Urine pH 6.5 Urine Specific [place] 1.026 Urine Protein TRACE mg/dL Urine Glucose (UA) NEG mg/dL Urine Ketones TRACE mg/dL Urine Occult Blood NEG Urine Nitrite NEG Urine Bilirubin NEG Urine Urobilinogen 2.0 MG/DL Urine Leukocyte Esterase SMALL Urine WBC 21 /hpf Urine Hyaline Casts 7 /lpf Urine Granular Casts 3 /lpf Urine Mucus FEW /lpf Microscopic Urinalysis Comment CATH-CULTURE IND Urine Opiates Screen NEG Urine Barbiturates Screen NEG Urine Amphetamines Screen NEG Urine Benzodiazepines Screen NEG Urine Cocaine Screen NEG Urine Cannabinoids Screen NEG White Blood Count 11.3 TH/MM3 Red Blood Count 3.80 MIL/MM3 Hemoglobin 11.9 GM/DL Hematocrit 33.8 % Mean Corpuscular Volume 88.8 FL Mean Corpuscular Hemoglobin 31.2 PG Mean Corpuscular Hemoglobin Concent 35.2 % Red Cell Distribution Width 13.6 % Platelet Count 265 TH/MM3 Mean Platelet Volume 7.8 FL Neutrophils (%) (Auto) 82.1 % Lymphocytes (%) (Auto) 9.1 % Monocytes (%) (Auto) 7.8 % Eosinophils (%) (Auto) 0.7 % Basophils (%) (Auto) 0.3 % Neutrophils # (Auto) 9.3 TH/MM3 Lymphocytes # (Auto) 1.0 TH/MM3 Monocytes # (Auto) 0.9 TH/MM3 Eosinophils # (Auto) 0.1 TH/MM3 Basophils # (Auto) 0.0 TH/MM3 CBC Comment DIFF FINAL Differential Comment Prothrombin Time 10.8 SEC Prothromb Time International Ratio 1.0 RATIO Activated Partial Thromboplast Time 27.5 SEC Blood Urea Nitrogen 19 MG/DL Creatinine 0.89 MG/DL Random Glucose 88 MG/DL Total Protein 6.0 GM/DL Albumin 2.9 GM/DL Calcium Level 7.8 MG/DL Alkaline Phosphatase 84 U/L Aspartate Amino Transf (AST/SGOT) 29 U/L Alanine Aminotransferase (ALT/SGPT) 22 U/L Total Bilirubin 0.5 MG/DL Sodium Level 140 MEQ/L Potassium Level 3.3 MEQ/L Chloride Level 105 MEQ/L Carbon Dioxide Level 27.6 MEQ/L Anion Gap 7 MEQ/L Estimat Glomerular Filtration Rate 83 ML/MIN Lactic Acid Level 1.8 mmol/L Magnesium Level 2.0 MG/DL Total Creatine Kinase 200 U/L Creatine Kinase MB 2.4 NG/ML Troponin I LESS THAN 0.02 NG/ML Lipase 213 U/L Vitamin B12 Level 239 PG/ML Thyroid Stimulating Hormone 3rd Gen 1.220 uIU/ML [facility] Medical Decision Making Medical Screen Exam Complete: Yes Emergency Medical Condition: Yes Differential Diagnosis alcohol intoxication versus UTI versus pneumonia versus metabolic derangement versus other Narrative Course 77-year-old male presents to the ED via EMS for evaluation. Patient is unable to provide any meaningful history on presentation. When I ask him why he is at the emergency room. He states that "just woke up and I felt it." When I asked him what today's date is he says "last month." He denies any somatic complaints on presentation. Per EMS the patient was found lying in a field and multiple bystanders placed calls to 911. Patient endorses homelessness. Vitals reviewed. Patient is warm to the touch and temperature is 100.6 orally on presentation. Physical exam reveals a disheveled, soiled well male in no acute distress. He follows commands and has no focal neuro deficits. He has several small wounds in various stages of healing all without signs of infection. Chest is CTAB. Abdomen soft and nontender. Extremity edema noted. IV was established. Patient was administered a gram of Tylenol and 1 L of normal saline IV. CBC: WBC 11.3. Hemoglobin 11.9. Coags: INR 1.0. BMP: BUN 19, creatinine 0.89. Calcium 7.8. EKG rate 80, sinus rhythm with occasional PVCs. MO interval 156, QRS 99, QTc 442. Normal axis. Incomplete RBBB. Moderate ST depression. No acute ST changes. Reviewed by Dr. Johnson. Cardiac enzymes negative 1. Chest x-ray shows small left lower lobe infiltrate. CT abdomen and pelvis: bibasilar emphysematous changes and mild diverticular disease without diverticulitis. Moderate stool in the rectal vault distal colon. Head CT: No acute findings. UA: Small leukocyte esterase, 21 WBCs. Culture pending. According to case management there is an open case with [facility] for placement in a SNF for this patient. Dr. Johnson ordered azithromycin and cefepime. Will admit to the medicine service. The patient is agreeable to this plan. I spoke with Dr. Cantu who agrees to accept the patient to medicine service. Please see medicine notes for disposition. Scripts No Active Prescriptions or Reported Meds Katie Jordan Jul 17, 2017 17:47
[2017-07-17] MEDS ORDERED: SODIUM CHLOR 0.45% 1000 ML INJ 1,000 ML IV SCH (18:05)
[2017-07-17] MEDS ORDERED: ACETAMINOPHEN 325 MG TAB PO PRN ×3 (18:15→18:45)
[2017-07-17] MEDS ORDERED: SODIUM CHLORIDE 0.9% FLUSH 10 ML FLUSH IV FLUSH PRN ×2 (18:15→18:45)
[2017-07-17] MEDS ORDERED: ONDANSETRON HCL 4 MG/2 ML VIAL IVP PRN ×2 (18:15→18:45)
--- NOTE | 2017-07-17 18:23 | HHI.HP ---
HPI Service [facility] Hospitalists Primary Care Physician No Primary Care Physician Admission Diagnosis LLL PNA Diagnoses: (1) History of CVA (cerebrovascular accident) (2) Community acquired pneumonia Diagnosis: Principal (3) DM (diabetes mellitus) Diagnosis: Secondary (4) CVA (cerebral infarction) Diagnosis: Secondary (5) HTN (hypertension) Diagnosis: Secondary (6) PNA (pneumonia) Diagnosis: Principal Chief Complaint: "I feel fine" Travel History International Travel<30 Days: No Contact w/Intl Traveler <30 Da: No Traveled to Known Affected Are: No History of Present Illness This is a homeless 77-year-old male with past medical history significant for hypertension, possible seizure disorder and questionable history of CVA who was brought in to [facility] ED via EMS for evaluation. Patient is confused and is unable to provide any meaningful history. He denies any complaints at present. He denies any fever or chills. He denies any nausea, vomiting or abdominal pain. Denies any chest pain or shortness of breath. He denies any urinary complaints. He does state that he has not had a bowel movement in 3 or 4 days however patient informed the nurse earlier today in the ED that he had a good bowel movement this morning. Patient is homeless and was lying in a field. Reportedly, EMS was dispatched due to the police department receiving multiple 911 calls. In the ED, patient was found to have a temperature 100.6. Blood pressure slightly elevated 175/94. Head CT showed no acute findings. Chest x-ray shows small infiltrate left lung base. CT of abdomen and pelvis showed bibasilar emphysematous changes and mild diverticular disease without diverticulitis. There is also noted to be a moderate amount of stool in the rectal vault and distal colon possibly represent mild constipation. Review of Systems ROS Limitations: Altered Mental Status Except as stated in HPI: all other systems reviewed are Neg Past Family Social History Past Medical History Patient denies any past medical history but per review of the medical record: Hypertension Possible history of CVA Possible Seizure disorder Past Surgical History Unable to obtain due to patient's cognitive impairment Reported Medications No active prescriptions or reported medications Allergies: Coded Allergies: milk (Unverified Allergy, Severe, Anaphylaxis, 07/17/17) SHORTNESS OF BREATH Active Ordered Medications Active Medications Acetaminophen (Tylenol) 1,000 mg ONCE ONCE PO Last administered on 07/17/17 15:06; Start 07/17/17 at 14:45; Stop 07/17/17 at 14:46; Status DC Azithromycin 500 mg/Sodium Chloride 250 ml @ 250 mls/hr ONCE STAT IV Last administered on 07/17/17 17:42; Start 07/17/17 at 16:29; Stop 07/17/17 at 17 :28; Status DC Cefepime HCl 2000 mg/Sodium Chloride 100 ml @ 200 mls/hr ONCE STAT IV; Start 07/17/17 at 16:29; Stop 07/17/17 at 16:58; Status DC Sodium Chloride 1,000 ml @ 999 mls/hr BOLUS ONCE IV Last administered on 07/17 15:05; Start 07/17/17 at 14:45; Stop 07/17/17 at 15:45; Status DC Family History Unable to obtain due to patient's cognitive impairment Social History Patient states he smokes 2 packs of cigars a day. He denies any alcohol use. He denies any illicit drug use. Physical Exam Vital Signs Vital Signs Date Time Temp Pulse Resp B/P (MAP) Pulse Ox O2 Delivery O2 Flow Rate FiO2 07/17/17 16:55 72 16 143/66 (91) 98 Room Air 07/17/17 14:13 100.6 92 16 175/94 (121) 95 Physical Exam GENERAL: This is a unkempt, thin, frail male patient, in no apparent distress. Pleasantly confused. SKIN: Warm to touch. Multiple scattered abrasions noted. No evidence of active infection. HEAD: Atraumatic. Normocephalic. No temporal or scalp tenderness. EYES: Pupils equal round and reactive. Extraocular motions intact. No scleral icterus. No injection or drainage. ENT: Nose without bleeding, purulent drainage. Throat without erythema, tonsillar hypertrophy or exudate. Uvula midline. Airway patent. NECK: Trachea midline. No JVD or lymphadenopathy. Supple, nontender, no meningeal signs. CARDIOVASCULAR: Regular rate and rhythm without murmurs, gallops, or rubs. RESPIRATORY: Coarse breath sounds bilaterally. Nonlabored. GASTROINTESTINAL: Abdomen soft, nondistended. Diffusely tender to palpation. No hepato-splenomegaly, or palpable masses. No guarding. MUSCULOSKELETAL: Extremities without clubbing, cyanosis, or edema. No joint tenderness, effusion, or edema noted. No calf tenderness. NEUROLOGICAL: Awake and alert. Able to move all extremities spontaneously. Normal speech. PSYCHIATRIC: Confused. Patient is oriented to place and self. Abnormal judgment and insight. Laboratory Laboratory Tests Test 07/17/17 15:05 07/17/17 15:08 Urine Color YELLOW Urine Turbidity CLEAR Urine pH 6.5 Urine Specific [place] 1.026 Urine Protein TRACE Urine Glucose (UA) NEG Urine Ketones TRACE Urine Occult Blood NEG Urine Nitrite NEG Urine Bilirubin NEG Urine Urobilinogen 2.0 Urine Leukocyte Esterase SMALL Urine WBC 21 Urine Hyaline Casts 7 Urine Granular Casts 3 Urine Mucus FEW Microscopic Urinalysis Comment CATH-CULTURE IND White Blood Count 11.3 Red Blood Count 3.80 Hemoglobin 11.9 Hematocrit 33.8 Mean Corpuscular Volume 88.8 Mean Corpuscular Hemoglobin 31.2 Mean Corpuscular Hemoglobin Concent 35.2 Red Cell Distribution Width 13.6 Platelet Count 265 Mean Platelet Volume 7.8 Neutrophils (%) (Auto) 82.1 Lymphocytes (%) (Auto) 9.1 Monocytes (%) (Auto) 7.8 Eosinophils (%) (Auto) 0.7 Basophils (%) (Auto) 0.3 Neutrophils # (Auto) 9.3 Lymphocytes # (Auto) 1.0 Monocytes # (Auto) 0.9 Eosinophils # (Auto) 0.1 Basophils # (Auto) 0.0 CBC Comment DIFF FINAL Differential Comment Prothrombin Time 10.8 Prothromb Time International Ratio 1.0 Activated Partial Thromboplast Time 27.5 Blood Urea Nitrogen 19 Creatinine 0.89 Random Glucose 88 Total Protein 6.0 Albumin 2.9 Calcium Level 7.8 Alkaline Phosphatase 84 Aspartate Amino Transf (AST/SGOT) 29 Alanine Aminotransferase (ALT/SGPT) 22 Total Bilirubin 0.5 Sodium Level 140 Potassium Level 3.3 Chloride Level 105 Carbon Dioxide Level 27.6 Anion Gap 7 Estimat Glomerular Filtration Rate 83 Lactic Acid Level 1.8 Total Creatine Kinase 200 Creatine Kinase MB 2.4 Troponin I LESS THAN 0.02 Lipase 213 Date/Time Source Procedure Growth Status 07/17/17 15:08 Blood Peripheral Aerobic Blood Culture Pending Received 07/17/17 15:08 Blood Peripheral Anaerobic Blood Culture Pending Received 07/17/17 15:05 Urine Clean Catch Urine Culture Pending Received Result Diagram: 07/17/17 1508 07/17/17 1508 Imaging Last Impressions Head CT 07/17/171436 Signed Impressions: Service Date/Time: Monday, July 17, 2017 16:12 - CONCLUSION: No acute findings. Central atrophy with dilation of the ventricles, decreased attenuation in the supratentorial white matter and old infarction in the anterior right external capsule are all stable in appearance compared prior CT. Heri Jj MD Chest X-Ray 07/17/171436 Signed Impressions: Service Date/Time: Monday, July 17, 2017 14:57 - CONCLUSION: Small infiltrate left lung base. Heri Jj MD Abdomen/Pelvis CT 07/17/171436 Signed Impressions: Service Date/Time: Monday, July 17, 2017 16:16 - CONCLUSION: 1. Bibasilar emphysematous changes with some scarring laterally just above the left hemidiaphragm. No confluent infiltrate. 2. Mild diverticular disease of the sigmoid without diverticulitis. Moderate amount of stool in the rectal vault and distal colon possibly representing mild constipation. 3. Otherwise, I see no acute intraperitoneal or pelvic process to explain current clinical symptoms. MD Jessy Magana VTE Risk Assessment Caprini VTE Risk Assessment: Mod/High Risk (score >= 2) Caprini Risk Assessment Model Point Value = 1 Point Value = 2 Point Value = 3 Point Value = 5 Age 41-60 Minor surgery BMI > 25 kg/m2 Swollen legs Varicose veins or History of unexplained or recurrent spontaneous Oral contraceptives or hormone replacement Sepsis (< 1 month) Serious lung disease, including pneumonia (< 1 month) Abnormal pulmonary function Acute myocardial infarction Congestive heart failure (< 1 month) History of inflammatory bowel disease Medical patient at bed rest Age 61-74 Arthroscopic surgery Major open surgery (> 45 min) Laparoscopic surgery (> 45 min) Malignancy Confined to bed (> 72 hours) Immobilizing plaster cast Central venous access Age >= 75 History of VTE Family history of VTE Factor V Leiden Prothrombin [id number] Lupus anticoagulant Anticardiolipin antibodies Elevated serum homocysteine Heparin-induced thrombocytopenia Other congenital or acquired thrombophilia Stroke (< 1 month) Elective arthroplasty Hip, pelvis, or leg fracture Acute spinal cord injury (< 1 month) Prophylaxis Regimen Total Risk Factor Score Risk Level Prophylaxis Regimen 0-1 Low Early ambulation 2 Moderate Order ONE of the following: *Sequential Compression Device (SCD) *Heparin 5000 units SQ BID 3-4 Higher Order ONE of the following medications: *Heparin 5000 units SQ TID *Enoxaparin/Lovenox 40 mg SQ daily (WT < 150 kg, CrCl > 30 mL/min) *Enoxaparin/Lovenox 30 mg SQ daily (WT < 150 kg, CrCl > 10-29 mL/min) *Enoxaparin/Lovenox 30 mg SQ BID (WT < 150 kg, CrCl > 30 mL/min) AND/OR *Sequential Compression Device (SCD) 5 or more Highest Order ONE of the following medications: *Heparin 5000 units SQ TID (Preferred with Epidurals) *Enoxaparin/Lovenox 40 mg SQ daily (WT < 150 kg, CrCl > 30 mL/min) *Enoxaparin/Lovenox 30 mg SQ daily (WT < 150 kg, CrCl > 10-29 mL/min) *Enoxaparin/Lovenox 30 mg SQ BID (WT < 150 kg, CrCl > 30 mL/min) AND *Sequential Compression Device (SCD) Assessment and Plan Assessment and Plan Homeless 77-year-old male with past medical history significant for hypertension , diabetes, possible seizure disorder and history of CVA who was brought in to [facility] ED via EMS for evaluation. Left lower lobe pneumonia COPD, not in exacerbation - Chest x-ray personally reviewed showing small infiltrate left lung base - Bibasilar emphysematous changes noted on CT the abdomen and pelvis - IV ceftriaxone and azithromycin - DuoNeb scheduled - Incentive spirometry at the bedside, encourage use - Supplemental oxygen as needed to maintain O2 sats above 92% - Monitor respiratory status Encephalopathy Questionable history of seizure disorder Possible history of CVA - Unsure of patient's baseline - Head CT personally reviewed showing no acute intracranial process - Possible due to early sepsis/PNA/UTI. White count 11.3. Temp 100.6. HR 92. Lactic acid 1.8. - Follow up on blood culture results. Possible UTI. Follow-up on urine culture results. Patient on IV ceftriaxone. - obtain TSH, B12, RPR - Continuous cardiac monitoring - Neuro checks q4 - UDS ordered - Consult ST for swallow and cognitive evaluation - Consult PT/OT - Consult case management - Fall risk - Seizure precautions Hypertension - Elevated at presentation but improved - Clonidine with parameters - Monitor BP and initiate treatment if indicated Constipation - CT of the abdomen and pelvis reviewed showing mild diverticular disease without diverticulitis and moderate amount of stool representing mild constipation. - Christi colace BID - Miralax now - monitor for BM Hypokalemia - Replete - Check magnesium level - A.m. labs to monitor response DVT prophylaxis - Bilateral SCD/RAFAELA hose - Heparin subcutaneous The exam, history, and the medical decision-making described in the above note were completed with the assistance of the mid-level provider. I reviewed and agree with the findings presented. I attest that I had a [id number] encounter with the patient on the same day, and personally performed and documented my assessment and findings in the medical record. Code Status FULL CODE Discussed Condition With Patient, nursing staff, ED Dr. Pepe MILLER Shannon PA Jul 17, 2017 18:23 Dominik Cantu DO Jul 17, 2017 18:33
[2017-07-17] MEDS: RESP: ALBUTEROL 2.5 MG/IPRATROPIUM 0.5 MG NEB (SCH) NEB (18:44)
[2017-07-17 18:45] VITALS: O2SAT 98
[2017-07-17] MEDS ORDERED: LACTULOSE SYRUP 20 GM/30 ML CUP PO PRN (18:45)
[2017-07-17] MEDS ORDERED: oxyCODONE/ACETAMINOPHEN 5 MG/325 MG TAB PO PRN (18:45)
[2017-07-17] MEDS ORDERED: SENNOSIDES 8.6 MG TAB PO PRN (18:45)
[2017-07-17] MEDS ORDERED: MORPHINE SULFATE 4 MG/ML INJ IV PUSH PRN ×2 (18:45)
[2017-07-17] MEDS ORDERED: BISACODYL 10 MG SUPP RECTAL PRN (18:45)
[2017-07-17] MEDS ORDERED: NALOXONE HCL 0.4 MG/ML AMP IV PUSH PRN (18:45)
[2017-07-17] MEDS ORDERED: PROCHLORPERAZINE 25 MG SUPP RECTAL PRN (18:45)
[2017-07-17] MEDS ORDERED: MAGNESIUM HYDROXIDE SUSP 30 ML CUP PO PRN (18:45)
[2017-07-17] MEDS ORDERED: oxyCODONE/ACETAMINOPHEN 10 MG/325 MG TAB PO PRN (18:45)
[2017-07-17 19:15] VITALS: BP 159/89; PULSE 97; RESP 20; TEMP 97.1; O2SAT 98
[2017-07-17 20:00] VITALS: PULSE 70
[2017-07-17] MEDS ORDERED: POLYETHYLENE GLYCOL 17 GM PKG PO ONE (20:00)
[2017-07-17] MEDS ORDERED: POTASSIUM CHLORIDE 10 MEQ CONTROLLED RELEASE TAB PO ONE (20:00)
[2017-07-17 20:13] VITALS: O2SAT 98
[2017-07-17] MEDS: DOCUSATE SODIUM 50 MG/SENNA 8.6 MG TAB PO SCH (21:00)
[2017-07-17] MEDS ORDERED: SODIUM CHLORIDE 0.9% FLUSH 10 ML FLUSH IV FLUSH SCH (21:00)
[2017-07-17] MEDS ORDERED: DOCUSATE SODIUM 50 MG/SENNA 8.6 MG TAB PO SCH (21:00)
[2017-07-17] MEDS: HEPARIN SODIUM - SQ 10,000 UNITS/ML VIAL SQ SCH (23:02)
[2017-07-17] MEDS: cefTRIAXone INJ 1,000 MG in SODIUM CHLORIDE 0.9% INJ 100 ML IV SCH (23:04)
[2017-07-17] MEDS: SODIUM CHLORIDE 0.9% FLUSH 10 ML FLUSH IV FLUSH SCH (23:04)
[2017-07-17] MEDS: SODIUM CHLOR 0.9% 1000 ML INJ 1,000 ML IV SCH (23:05)
[2017-07-17 23:42] LABS: CREATINE KINASE 138 U/L (39-308)
[2017-07-18] VITALS (10 sets, daily range): BP systolic 117–157; BP diastolic 55–81; PULSE 70–80; RESP 18–20; TEMP 97.9–99.6; O2SAT 92–98
[2017-07-18 04:02] LABS: AUTOMATED NEUTROPHIL # 7.7 TH/MM3 (1.8-7.7); BASOPHIL % 0.5 % (0.0-2.0); EOSINOPHIL # 0.1 TH/MM3 (0-0.4); EOSINOPHIL % 0.8 % (0.0-4.0); HEMATOCRIT 31.6 % (39.0-51.0); HEMO FLAGS DIFF FINAL; LYMPH % 6.7 % (9.0-44.0); LYMPHOCYTE # 0.6 TH/MM3 (1.0-4.8); MEAN CELL VOLUME 89.6 FL (80.0-100.0); MEAN CORPUSCULAR HEMOGLOBIN 30.7 PG (27.0-34.0); MEAN CORPUSCULAR HGB CONC 34.2 % (32.0-36.0); MONO % 2.5 % (0.0-8.0); NEUT % 89.5 % (16.0-70.0); PLATELET COUNT 244 TH/MM3 (150-450); RED BLOOD COUNT 3.53 MIL/MM3 (4.50-5.90); RED CELL DISTRIBUTION WIDTH 13.7 % (11.6-17.2); WHITE BLOOD COUNT 8.7 TH/MM3 (4.0-11.0)
[2017-07-18 04:35] LABS: CREATINE KINASE 141 U/L (39-308)
[2017-07-18 04:36] LABS: BICARBONATE 25.7 MEQ/L (21.0-32.0); CALCIUM-PROTEIN CORRECTED 8.3 MG/DL (8.5-10.1); FREE T4 1.18 NG/DL (0.76-1.46); POTASSIUM 3.5 MEQ/L (3.5-5.1); TOTAL BILIRUBIN ADULT 0.6 MG/DL (0.2-1.0)
[2017-07-18] MEDS: RESP: ALBUTEROL 2.5 MG/IPRATROPIUM 0.5 MG NEB (SCH) NEB ×2 (09:19→19:32)
[2017-07-18] MEDS: HEPARIN SODIUM - SQ 10,000 UNITS/ML VIAL SQ SCH ×2 (09:55→20:41)
[2017-07-18] MEDS: SODIUM CHLORIDE 0.9% FLUSH 10 ML FLUSH IV FLUSH SCH ×2 (09:55→20:48)
[2017-07-18] MEDS: DOCUSATE SODIUM 50 MG/SENNA 8.6 MG TAB PO SCH ×2 (09:56→20:48)
[2017-07-18] MEDS: SODIUM CHLOR 0.9% 1000 ML INJ 1,000 ML IV SCH (12:34)
--- NOTE | 2017-07-18 14:31 | HHI.PR ---
Subjective Remarks No acute events overnight. Afebrile, vital signs stable. Patient c/o pain in his right UE. Denies CP/SOB. Able to carry on a conversation, oriented only to self. Objective Vitals Vital Signs Date Time Temp Pulse Resp B/P (MAP) Pulse Ox O2 Delivery O2 Flow Rate FiO2 07/18/17 09:22 95 07/18/17 08:01 98.8 77 18 143/67 (92) 93 07/18/17 08:00 74 07/18/17 04:00 99.6 80 20 117/58 (77) 94 07/18/17 00:00 98.5 70 20 119/59 (79) 94 07/17/17 20:13 98 21 07/17/17 20:00 70 07/17/17 19:15 97.1 97 20 159/89 (112) 98 07/17/17 18:45 98 21 07/17/17 16:55 72 16 143/66 (91) 98 Room Air I/O 07/17/17 07/17/17 07/17/17 07/18/17 07/18/17 07/18/17 07:00 15:00 23:00 07:00 15:00 23:00 Intake Total 1250 ml 360 ml Output Total 200 ml Balance 1250 ml 160 ml Intake Oral 360 ml IV Total 1250 ml Output Urine Total 200 ml # Voids 1 # Bowel Movements 0 Result Diagram: 07/18/17 0336 07/18/17 0336 Objective Remarks GENERAL: This is a unkempt, thin, frail male patient, in no apparent distress. Pleasantly confused. SKIN: Warm to touch. Multiple scattered abrasions noted. No evidence of active infection. HEAD: Atraumatic. Normocephalic. No temporal or scalp tenderness. EYES: Pupils equal round and reactive. Extraocular motions intact. No scleral icterus. No injection or drainage. ENT: Nose without bleeding, purulent drainage. Throat without erythema, tonsillar hypertrophy or exudate. Uvula midline. Airway patent. NECK: Trachea midline. No JVD or lymphadenopathy. Supple, nontender, no meningeal signs. CARDIOVASCULAR: Regular rate and rhythm without murmurs, gallops, or rubs. RESPIRATORY: Coarse breath sounds bilaterally. Nonlabored. GASTROINTESTINAL: Abdomen soft, nondistended. Nontender to palpation. No hepato-splenomegaly, or palpable masses. No guarding. MUSCULOSKELETAL: Extremities without clubbing, cyanosis, or edema. No joint tenderness, effusion, or edema noted. No calf tenderness. NEUROLOGICAL: Awake and alert. Able to move all extremities spontaneously. Normal speech. PSYCHIATRIC: Confused. Patient is oriented only to self. Abnormal judgment and insight. A/P Problem List: (1) History of CVA (cerebrovascular accident) ICD Code: Z86.73 - History of CVA (cerebrovascular accident) Status: Acute (2) Community acquired pneumonia ICD Code: J18.9 - Community acquired pneumonia Status: Acute (3) DM (diabetes mellitus) ICD Code: E11.9 - DM (diabetes mellitus) Status: Chronic (4) CVA (cerebral infarction) ICD Code: I63.9 - CVA (cerebral infarction) Status: Chronic (5) HTN (hypertension) ICD Code: I10 - HTN (hypertension) Status: Chronic (6) PNA (pneumonia) ICD Code: J18.9 - PNA (pneumonia) Status: Acute Assessment and Plan Homeless 77-year-old male with past medical history significant for hypertension , diabetes, possible seizure disorder and history of CVA who was brought in to [facility] ED via EMS for evaluation. Left lower lobe pneumonia COPD, not in exacerbation - Chest x-ray showing small infiltrate left lung base - Bibasilar emphysematous changes noted on CT the abdomen and pelvis - IV ceftriaxone and azithromycin - DuoNeb scheduled - Incentive spirometry at the bedside, encourage use - Supplemental oxygen as needed to maintain O2 sats above 92% - Monitor respiratory status Encephalopathy Questionable history of seizure disorder Possible history of CVA - Unsure of patient's baseline - Head CT showing no acute intracranial process - Possible due to early sepsis/PNA/UTI. - Follow up on blood culture results. Possible UTI. Follow-up on urine culture results. Patient on IV ceftriaxone. - TSH, B12 wnl, RPR pending - Continuous cardiac monitoring - Neuro checks q4 - UDS negative - ST recommends NPO as patient high aspiration risk, will reassess tomorrow - Consult PT/OT - Consult case management - Fall risk - Seizure precautions Hypertension - Elevated at presentation but improved - Clonidine with parameters - Normotensive at this time (143/67) Constipation - CT of the abdomen and pelvis reviewed showing mild diverticular disease without diverticulitis and moderate amount of stool representing mild constipation. - Christi colace BID - Miralax Hypokalemia - Replete DVT prophylaxis - Bilateral SCD/RAFAELA hose - Heparin subcutaneous Discharge Planning Pending clinical improvement. Depending on patient's baseline, may need SNF/[facility]. Zohreh Epstein MD Jul 18, 2017 14:31
[2017-07-18] MEDS: AZITHROMYCIN INJ 250 MG in SODIUM CHLOR 0.9% 250 ML INJ 250 ML IV SCH (17:35)
[2017-07-18] MEDS: cefTRIAXone INJ 1,000 MG in SODIUM CHLORIDE 0.9% INJ 100 ML IV SCH (20:36)
[2017-07-19] VITALS (10 sets, daily range): BP systolic 129–152; BP diastolic 66–94; PULSE 64–82; RESP 17–18; TEMP 97.3–98.4; O2SAT 95–99
[2017-07-19] MEDS: SODIUM CHLOR 0.9% 1000 ML INJ 1,000 ML IV SCH ×3 (00:04→17:47)
[2017-07-19 07:02] LABS: AUTOMATED NEUTROPHIL # 3.3 TH/MM3 (1.8-7.7); BASOPHIL # 0.1 TH/MM3 (0-0.2); BASOPHIL % 1.1 % (0.0-2.0); EOSINOPHIL # 0.1 TH/MM3 (0-0.4); EOSINOPHIL % 2.3 % (0.0-4.0); HEMATOCRIT 29.3 % (39.0-51.0); HEMO FLAGS DIFF FINAL; LYMPH % 19.6 % (9.0-44.0); MEAN CELL VOLUME 88.9 FL (80.0-100.0); MEAN CORPUSCULAR HEMOGLOBIN 31.3 PG (27.0-34.0); MEAN CORPUSCULAR HGB CONC 35.2 % (32.0-36.0); MONO % 11.7 % (0.0-8.0); NEUT % 65.3 % (16.0-70.0); PLATELET COUNT 230 TH/MM3 (150-450); RED CELL DISTRIBUTION WIDTH 13.9 % (11.6-17.2); WHITE BLOOD COUNT 5.1 TH/MM3 (4.0-11.0)
[2017-07-19 07:22] LABS: BICARBONATE 25.5 MEQ/L (21.0-32.0); POTASSIUM 3.3 MEQ/L (3.5-5.1)
[2017-07-19] MEDS: DOCUSATE SODIUM 50 MG/SENNA 8.6 MG TAB PO SCH ×2 (07:53→20:45)
[2017-07-19] MEDS: SODIUM CHLORIDE 0.9% FLUSH 10 ML FLUSH IV FLUSH SCH ×2 (07:53→20:45)
[2017-07-19] MEDS: HEPARIN SODIUM - SQ 10,000 UNITS/ML VIAL SQ SCH ×2 (07:54→20:45)
[2017-07-19] MEDS: RESP: ALBUTEROL 2.5 MG/IPRATROPIUM 0.5 MG NEB (SCH) NEB ×3 (08:04→19:02)
[2017-07-19 09:36] LABS: HEMOGLOBIN A1a 1.2 %; HEMOGLOBIN A1b 1.5 %; HEMOGLOBIN Ao 86.4 %; HEMOGLOBIN LA1C 1.9 %; HEMOGLOBIN P3 3.4 %
[2017-07-19] MEDS ORDERED: POTASSIUM CHLORIDE 20 MEQ CONTROLLED RELEASE TAB PO ONE (11:30)
--- NOTE | 2017-07-19 12:41 | HHI.PR ---
Subjective Remarks No acute events overnight. AVSS. Oriented to self, not to place and time. Has no complaints at this time. Stable on RA. Objective Vitals Vital Signs Date Time Temp Pulse Resp B/P (MAP) Pulse Ox O2 Delivery O2 Flow Rate FiO2 07/19/17 08:06 97 07/19/17 08:01 98.1 64 18 149/74 (99) 97 07/19/17 08:00 65 07/19/17 04:00 98.1 72 18 129/84 (99) 97 07/19/17 00:00 Room Air 07/19/17 00:00 98.1 64 18 136/94 (108) 97 07/18/17 20:17 71 07/18/17 20:00 98.0 78 18 121/55 (77) 96 07/18/17 19:34 92 21 07/18/17 16:01 97.9 71 18 157/81 (106) 98 I/O 07/18/17 07/18/17 07/18/17 07/19/17 07/19/17 07/19/17 07:00 15:00 23:00 07:00 15:00 23:00 Intake Total 360 ml 590 ml 1000 ml Output Total 200 ml Balance 160 ml 590 ml 1000 ml Intake Oral 360 ml 240 ml 0 ml IV Total 350 ml 1000 ml Output Urine Total 200 ml # Voids 1 4 2 # Bowel Movements 0 0 Result Diagram: 07/19/1762107/19/17621 Objective Remarks GENERAL: This is a unkempt, thin, frail male patient, in no apparent distress. Pleasantly confused. SKIN: Warm to touch. Multiple scattered abrasions noted. No evidence of active infection. HEAD: Atraumatic. Normocephalic. No temporal or scalp tenderness. EYES: Pupils equal round and reactive. Extraocular motions intact. No scleral icterus. No injection or drainage. ENT: Nose without bleeding, purulent drainage. Throat without erythema, tonsillar hypertrophy or exudate. Uvula midline. Airway patent. NECK: Trachea midline. No JVD or lymphadenopathy. Supple, nontender, no meningeal signs. CARDIOVASCULAR: Regular rate and rhythm without murmurs, gallops, or rubs. RESPIRATORY: Coarse breath sounds bilaterally. Nonlabored. GASTROINTESTINAL: Abdomen soft, nondistended. Nontender to palpation. No hepato-splenomegaly, or palpable masses. No guarding. MUSCULOSKELETAL: Extremities without clubbing, cyanosis, or edema. No joint tenderness, effusion, or edema noted. No calf tenderness. NEUROLOGICAL: Awake and alert. Able to move all extremities spontaneously. Normal speech. PSYCHIATRIC: Confused. Patient is oriented only to self. Abnormal judgment and insight. A/P Problem List: (1) History of CVA (cerebrovascular accident) ICD Code: Z86.73 - History of CVA (cerebrovascular accident) Status: Acute (2) Community acquired pneumonia ICD Code: J18.9 - Community acquired pneumonia Status: Acute (3) DM (diabetes mellitus) ICD Code: E11.9 - DM (diabetes mellitus) Status: Chronic (4) CVA (cerebral infarction) ICD Code: I63.9 - CVA (cerebral infarction) Status: Chronic (5) HTN (hypertension) ICD Code: I10 - HTN (hypertension) Status: Chronic (6) PNA (pneumonia) ICD Code: J18.9 - PNA (pneumonia) Status: Acute Assessment and Plan Homeless 77-year-old male with past medical history significant for hypertension , diabetes, possible seizure disorder and history of CVA who was brought in to [facility] ED via EMS for evaluation. Left lower lobe pneumonia COPD, not in exacerbation - Chest x-ray showing small infiltrate left lung base - Bibasilar emphysematous changes noted on CT the abdomen and pelvis - IV ceftriaxone and azithromycin - DuoNeb scheduled - Incentive spirometry at the bedside, encourage use - Supplemental oxygen as needed to maintain O2 sats above 92% - Monitor respiratory status Encephalopathy Questionable history of seizure disorder Possible history of CVA - Unsure of patient's baseline - Head CT showing no acute intracranial process - Possible due to early sepsis/PNA/UTI. - Follow up on blood culture results. Possible UTI. Follow-up on urine culture results. Patient on IV ceftriaxone. - TSH, B12 wnl, RPR pending - Continuous cardiac monitoring - Neuro checks q4 - UDS negative - ST recommends NPO as patient high aspiration risk, will reassess today - Consult PT/OT - Consult case management - Fall risk - Seizure precautions Hypertension - Elevated at presentation but improved - Clonidine with parameters - Normotensive at this time Constipation - CT of the abdomen and pelvis reviewed showing mild diverticular disease without diverticulitis and moderate amount of stool representing mild constipation. - Christi colace BID - Miralax Hypokalemia - Replete DVT prophylaxis - Bilateral SCD/RAFAELA hose - Heparin subcutaneous Discharge Planning Pending clinical improvement. Depending on patient's baseline, may need SNF/[facility]. Zohreh Epstein MD Jul 19, 2017 12:41
[2017-07-19] MEDS: POTASSIUM CHLOR 10 MEQ PREMIX 100 ML IV SCH ×3 (13:27→15:46)
[2017-07-19] MEDS: AZITHROMYCIN INJ 250 MG in SODIUM CHLOR 0.9% 250 ML INJ 250 ML IV SCH (17:25)
[2017-07-19] MEDS: cefTRIAXone INJ 1,000 MG in SODIUM CHLORIDE 0.9% INJ 100 ML IV SCH (20:45)
--- NOTE | 2017-07-19 21:11 | EKG ---
Date Performed: 07/17/2017 Time Performed: 15:23:50 PTAGE: 77 years EKG: Sinus rhythm WITH OCCASIONAL SUPRAVENTRICULAR PREMATURE COMPLEXES LEFT ANTERIOR FASCICULAR BLOCK MODERATE ST DEPR ESSION ABNORMAL ECG PREVIOUS TRACING : 07/17/2017 15.22 DOCTOR: Pedro Frausto Interpretating Date/Time 07/19/2017 21:02:14
[2017-07-20] VITALS (10 sets, daily range): BP systolic 147–181; BP diastolic 70–96; PULSE 56–98; RESP 18–20; TEMP 97.9–98.9; O2SAT 94–97
[2017-07-20] MEDS: SODIUM CHLOR 0.9% 1000 ML INJ 1,000 ML IV SCH ×2 (06:37→16:52)
[2017-07-20 07:08] LABS: AUTOMATED NEUTROPHIL # 4.2 TH/MM3 (1.8-7.7); BASOPHIL % 0.8 % (0.0-2.0); EOSINOPHIL # 0.2 TH/MM3 (0-0.4); EOSINOPHIL % 2.6 % (0.0-4.0); HEMATOCRIT 30.4 % (39.0-51.0); HEMO FLAGS DIFF FINAL; LYMPH % 18.5 % (9.0-44.0); LYMPHOCYTE # 1.1 TH/MM3 (1.0-4.8); MEAN CELL VOLUME 89.7 FL (80.0-100.0); MEAN CORPUSCULAR HEMOGLOBIN 31.6 PG (27.0-34.0); MEAN CORPUSCULAR HGB CONC 35.2 % (32.0-36.0); MONO % 10.2 % (0.0-8.0); NEUT % 67.9 % (16.0-70.0); PLATELET COUNT 260 TH/MM3 (150-450); RED BLOOD COUNT 3.39 MIL/MM3 (4.50-5.90); WHITE BLOOD COUNT 6.2 TH/MM3 (4.0-11.0)
[2017-07-20 07:35] LABS: BICARBONATE 24.1 MEQ/L (21.0-32.0); POTASSIUM 3.8 MEQ/L (3.5-5.1)
[2017-07-20] MEDS: RESP: ALBUTEROL 2.5 MG/IPRATROPIUM 0.5 MG NEB (SCH) NEB ×3 (07:48→19:27)
[2017-07-20] MEDS ORDERED: hydrALAZINE HCL 10 MG TAB PO PRN (08:15)
[2017-07-20] MEDS ORDERED: ENALAPRILAT 1.25 MG/ML VIAL IV PUSH PRN (08:15)
[2017-07-20] MEDS: SODIUM CHLORIDE 0.9% FLUSH 10 ML FLUSH IV FLUSH SCH ×2 (09:00→21:00)
[2017-07-20] MEDS: DOCUSATE SODIUM 50 MG/SENNA 8.6 MG TAB PO SCH ×2 (09:06→22:23)
[2017-07-20] MEDS: HEPARIN SODIUM - SQ 10,000 UNITS/ML VIAL SQ SCH ×2 (09:08→22:23)
--- NOTE | 2017-07-20 09:28 | HHI.PR ---
Subjective Remarks Pt denies any pain, CP/SOB/N/V would like to eat breakfast, when asked if he has family here, he says no, then states "I have a son somewhere". tells me that he had a prior hx of CVA in the past. doesn't remember why he is here. Objective Vitals Vital Signs Date Time Temp Pulse Resp B/P (MAP) Pulse Ox O2 Delivery O2 Flow Rate FiO2 07/20/17 08:00 98.2 56 18 178/86 (116) 95 07/20/17 07:50 95 07/20/17 04:00 Room Air 07/20/17 04:00 98.7 73 18 181/96 (124) 95 07/20/17 00:00 98.9 75 18 170/77 (108) 94 07/20/17 00:00 Room Air 07/19/17 20:13 80 07/19/17 20:00 Room Air 07/19/17 20:00 98.4 82 17 143/77 (99) 95 07/19/17 19:02 96 21 07/19/17 16:01 97.3 75 18 142/66 (91) 99 07/19/17 12:01 98.0 70 18 152/71 (98) 99 I/O 07/19/17 07/19/17 07/19/17 07/20/17 07/20/17 07/20/17 07:00 15:00 23:00 07:00 15:00 23:00 Intake Total 1000 ml 470 ml 1000 ml Balance 1000 ml 470 ml 1000 ml Intake Oral 0 ml 120 ml 0 ml IV Total 1000 ml 350 ml 1000 ml # Voids 2 3 3 # Bowel Movements 1 Result Diagram: 07/20/17 0540 07/20/17 0540 Imaging Last Impressions Head CT 07/17/171436 Signed Impressions: Service Date/Time: Monday, July 17, 2017 16:12 - CONCLUSION: No acute findings. Central atrophy with dilation of the ventricles, decreased attenuation in the supratentorial white matter and old infarction in the anterior right external capsule are all stable in appearance compared prior CT. Heri Jj MD Chest X-Ray 07/17/171436 Signed Impressions: Service Date/Time: Monday, July 17, 2017 14:57 - CONCLUSION: Small infiltrate left lung base. Heri Jj MD Abdomen/Pelvis CT 07/17/17 1437 Signed Impressions: Service Date/Time: Monday, July 17, 2017 16:16 - CONCLUSION: 1. Bibasilar emphysematous changes with some scarring laterally just above the left hemidiaphragm. No confluent infiltrate. 2. Mild diverticular disease of the sigmoid without diverticulitis. Moderate amount of stool in the rectal vault and distal colon possibly representing mild constipation. 3. Otherwise, I see no acute intraperitoneal or pelvic process to explain current clinical symptoms. Lorenzo Tyson MD Objective Remarks GENERAL: This is a unkempt, thin, frail male patient. Pleasantly confused. EYES: Pupils equal round and reactive. Extraocular motions intact. No scleral icterus. No injection or drainage. ENT: Nose without drainage. Airway patent. NECK: Trachea midline. CARDIOVASCULAR: Regular rate and rhythm without murmurs RESPIRATORY: Coarse breath sounds bilaterally. Nonlabored. GASTROINTESTINAL: Abdomen soft, nondistended. Nontender to palpation. No guarding. MUSCULOSKELETAL: Extremities without edema. NEUROLOGICAL: Awake and alert. 4/5 on the left side compared to 5/5 on the right. however, he is able to move all extremities spontaneously. Normal speech. PSYCHIATRIC: Confused. Patient is oriented only to self and place but thinks it is 1979. doesn't know where his family is A/P Problem List: (1) History of CVA (cerebrovascular accident) ICD Code: Z86.73 - History of CVA (cerebrovascular accident) Status: Acute (2) Community acquired pneumonia ICD Code: J18.9 - Community acquired pneumonia Status: Acute (3) DM (diabetes mellitus) ICD Code: E11.9 - DM (diabetes mellitus) Status: Chronic (4) CVA (cerebral infarction) ICD Code: I63.9 - CVA (cerebral infarction) Status: Chronic (5) HTN (hypertension) ICD Code: I10 - HTN (hypertension) Status: Chronic (6) PNA (pneumonia) ICD Code: J18.9 - PNA (pneumonia) Status: Acute Assessment and Plan Homeless 77-year-old male with past medical history significant for hypertension , diabetes, possible seizure disorder and history of CVA who was brought in to [facility] ED via EMS for evaluation. Left lower lobe pneumonia COPD, not in exacerbation - Chest x-ray showing small infiltrate left lung base - Bibasilar emphysematous changes noted on CT the abdomen and pelvis - on IV ceftriaxone and azithromycin - DuoNeb scheduled - Incentive spirometry at the bedside, encourage use - Supplemental oxygen as needed to maintain O2 sats above 92% - Monitor respiratory status Encephalopathy Questionable history of seizure disorder Possible history of CVA - Patient's baseline is unknown - Head CT showing no acute intracranial process - Blood and urine culture neg. - TSH, B12 wnl, RPR pending - Continuous cardiac monitoring - Neuro checks q4 - UDS negative - ST recommends nectar thick. - PT/OT following, PT recommend pt at rehab vs home health PT, OT recommends OT at rehab. Will consult CM for assistance for d/c planning. - Fall/sz precautions in place. Hypertension - Elevated. added amlodipine 10mg po daily and vasotec/hydralazine prn. - Clonidine with parameters Constipation - CT of the abdomen and pelvis reviewed showing mild diverticular disease without diverticulitis and moderate amount of stool representing mild constipation. - Christi colace BID - Miralax daily. Hypokalemia - Replete DVT prophylaxis - Bilateral SCD/RAFAELA hose - Heparin subcutaneous Discharge Planning CM assisting w d/c planning. Per PT/OT notes pt would benefit from SNF placement. Complete 5 days of abx. Dang Henderson MD Jul 20, 2017 09:28
[2017-07-20] MEDS: AZITHROMYCIN 250 MG TAB PO SCH (16:52)
[2017-07-20] MEDS: cefTRIAXone INJ 1,000 MG in SODIUM CHLORIDE 0.9% INJ 100 ML IV SCH (22:22)
[2017-07-21] VITALS: BP 159/76; PULSE 77; RESP 18; TEMP 98.6; O2SAT 94
[2017-07-21] MEDS: SODIUM CHLOR 0.9% 1000 ML INJ 1,000 ML IV SCH ×2 (02:33→05:03)
[2017-07-21 04:00] VITALS: BP 156/89; PULSE 72; RESP 18; TEMP 98.1; O2SAT 94
[2017-07-21 07:23] VITALS: O2SAT 95
[2017-07-21] MEDS: RESP: ALBUTEROL 2.5 MG/IPRATROPIUM 0.5 MG NEB (SCH) NEB (07:23)
[2017-07-21 08:00] VITALS: BP 145/73; PULSE 70; RESP 20; TEMP 98.5; O2SAT 93
[2017-07-21] MEDS ORDERED: AMLO10 PO (08:47)
[2017-07-21] MEDS ORDERED: IPRASOL NEB (08:47)
[2017-07-21] MEDS ORDERED: AZIT500T2 PO (08:47)
[2017-07-21] MEDS ORDERED: OXYC1TAB63 PO (08:47)
--- NOTE | 2017-07-21 08:59 | HHI.DS ---
Discharge Summary Admission Date Jul 17, 2017 at 18:38 Discharge Date: Jul 21, 2017 Admitting Diagnosis LLL PNA (1) History of CVA (cerebrovascular accident) ICD Code: Z86.73 - History of CVA (cerebrovascular accident) Status: Acute (2) Community acquired pneumonia ICD Code: J18.9 - Community acquired pneumonia Diagnosis: Principal Status: Acute (3) DM (diabetes mellitus) ICD Code: E11.9 - DM (diabetes mellitus) Diagnosis: Secondary Status: Chronic (4) CVA (cerebral infarction) ICD Code: I63.9 - CVA (cerebral infarction) Diagnosis: Secondary Status: Chronic (5) HTN (hypertension) ICD Code: I10 - HTN (hypertension) Diagnosis: Secondary Status: Chronic (6) PNA (pneumonia) ICD Code: J18.9 - PNA (pneumonia) Diagnosis: Principal Status: Acute Procedures none Brief History - From Admission This is a homeless 77-year-old male with past medical history significant for hypertension, possible seizure disorder and questionable history of CVA who was brought in to [facility] ED via EMS for evaluation. Patient is confused and is unable to provide any meaningful history. He denies any complaints at present. He denies any fever or chills. He denies any nausea, vomiting or abdominal pain. Denies any chest pain or shortness of breath. He denies any urinary complaints. He does state that he has not had a bowel movement in 3 or 4 days however patient informed the nurse earlier today in the ED that he had a good bowel movement this morning. Patient is homeless and was lying in a field. Reportedly, EMS was dispatched due to the police department receiving multiple 911 calls. In the ED, patient was found to have a temperature 100.6. Blood pressure slightly elevated 175/94. Head CT showed no acute findings. Chest x-ray shows small infiltrate left lung base. CT of abdomen and pelvis showed bibasilar emphysematous changes and mild diverticular disease without diverticulitis. There is also noted to be a moderate amount of stool in the rectal vault and distal colon possibly represent mild constipation. CBC/BMP: 07/20/1740 07/20/1740 Significant Findings Laboratory Tests Test 07/19/17 06:22 07/20/17 05:40 Red Blood Count 3.30 MIL/MM3 (4.50-5.90) 3.39 MIL/MM3 (4.50-5.90) Hemoglobin 10.3 GM/DL (13.0-17.0) 10.7 GM/DL (13.0-17.0) Hematocrit 29.3 % (39.0-51.0) 30.4 % (39.0-51.0) Monocytes (%) (Auto) 11.7 % (0.0-8.0) 10.2 % (0.0-8.0) Calcium Level 7.9 MG/DL (8.5-10.1) 8.2 MG/DL (8.5-10.1) Potassium Level 3.3 MEQ/L (3.5-5.1) Chloride Level 109 MEQ/L (98-107) Imaging Last Impressions Head CT 07/17/171436 Signed Impressions: Service Date/Time: Monday, July 17, 2017 16:12 - CONCLUSION: No acute findings. Central atrophy with dilation of the ventricles, decreased attenuation in the supratentorial white matter and old infarction in the anterior right external capsule are all stable in appearance compared prior CT. Heri Jj MD Chest X-Ray 07/17/171436 Signed Impressions: Service Date/Time: Monday, July 17, 2017 14:57 - CONCLUSION: Small infiltrate left lung base. Heri Jj MD Abdomen/Pelvis CT 07/17/171436 Signed Impressions: Service Date/Time: Monday, July 17, 2017 16:16 - CONCLUSION: 1. Bibasilar emphysematous changes with some scarring laterally just above the left hemidiaphragm. No confluent infiltrate. 2. Mild diverticular disease of the sigmoid without diverticulitis. Moderate amount of stool in the rectal vault and distal colon possibly representing mild constipation. 3. Otherwise, I see no acute intraperitoneal or pelvic process to explain current clinical symptoms. Lorenzo Tyson MD PE at Discharge GENERAL: This is a unkempt, thin, frail male patient. Pleasantly confused. EYES: Extraocular motions intact. ENT: Airway patent. NECK: Trachea midline. CARDIOVASCULAR: Regular rate and rhythm without murmurs RESPIRATORY: Coarse breath sounds bilaterally. Nonlabored. no wheezing GASTROINTESTINAL: Abdomen soft, nondistended. Nontender to palpation. No guarding. MUSCULOSKELETAL: Extremities without edema. NEUROLOGICAL: Awake and alert. 4/5 on the left side compared to 5/5 on the right. however, he is able to move all extremities spontaneously. Normal speech. PSYCHIATRIC: pleasantly Confused. Pt update on day of discharge Pt feels well. eating breakfast and states it is good. He states that he does have a mild cough and when he does he feels some discomfort on the left side of his lower chest however he is not having any pain at this time. denies any nausea or vomiting, denies any SOB at this time. Hospital Course Homeless 77-year-old male with past medical history significant for hypertension , diabetes, possible seizure disorder and history of CVA who was brought in to [facility] ED via EMS for evaluation. Left lower lobe pneumonia COPD, not in exacerbation - Chest x-ray showing small infiltrate left lung base. Bibasilar emphysematous changes noted on CT the abdomen and pelvis. Received IV ceftriaxone and azithromycin. Pt will be discharged on azithromycin po to complete 5 days. DuoNeb scheduled and as needed. Encouraged use of Incentive spirometry Encephalopathy Questionable history of seizure disorder Possible history of CVA - Patient's baseline is unknown. he does have some mild weakness on the left compared to the right which he says is normal for him. Head CT showing no acute intracranial process. Blood and urine culture neg. TSH, B12 wnl, RPR non reactive. UDS negative. ST recommends nectar thick. - PT/OT recommends PT/OT at rehab. Hypertension - better controlled on amlodipine 10mg po daily and vasotec/hydralazine prn. To be monitored as an outpatient closely. Constipation - CT of the abdomen and pelvis reviewed showing mild diverticular disease without diverticulitis and moderate amount of stool representing mild constipation. - Christi colace BID - Miralax daily. Pt Condition on Discharge: Stable Discharge Disposition: Discharge to SNF Discharge Time: > 30 minutes Discharge Instructions DIET: Follow Instructions for: Heart Healthy Diet Activities you can perform: Regular-No Restrictions Follow up Referrals: PCP Follow-up - 1 Week New Medications: Azithromycin (Azithromycin) 500 Mg Tab 500 MG PO DAILY for Infection, #2 TAB 0 Refills Nebulizer (Nebulizer) 1 Mis Mis EA .ROUTE DIRECTED for Breathing Treatment, #1 0 Refills Amlodipine (Norvasc) 10 Mg Tab 10 MG PO DAILY, #30 TAB Ipratropium-Albuterol Neb (Duoneb) 0.5-2.5 Mg/3 Ml Neb 1 AMPULE NEB Q8HR WHILE AWAKE NEB for Shortness of Breath, #1 BOX Oxycodone-Acetaminophen (Oxycodone-Acetaminophen) 5-325 mg Tab 1 TAB PO Q6H PRN for PAIN SCALE 6 TO 10, #20 TAB Dang Henderson MD Jul 21, 2017 08:59
[2017-07-21] MEDS ORDERED: POLYETHYLENE GLYCOL 17 GM PKG PO SCH (09:00)
[2017-07-21] MEDS ORDERED: NEBULIZER1 MI1 (09:00)
[2017-07-21] MEDS: HEPARIN SODIUM - SQ 10,000 UNITS/ML VIAL SQ SCH (09:20)
[2017-07-21] MEDS: AZITHROMYCIN 250 MG TAB PO SCH (09:20)
[2017-07-21] MEDS: DOCUSATE SODIUM 50 MG/SENNA 8.6 MG TAB PO SCH (09:20)
[2017-07-21] MEDS: SODIUM CHLORIDE 0.9% FLUSH 10 ML FLUSH IV FLUSH SCH (09:21)
[2017-07-21 11:30] VITALS: BP 146/78; PULSE 72; RESP 20; TEMP 98.2; O2SAT 96
== END 2017-07-21 12:00 | DRG 193 ==
LOC: NEPE 14:05 → NEDA 17:44 → INTOOBSV 17:44 → OBSVTOIN 18:38 → N04A 19:10
PROVIDERS: ADMIT Hospitalist; ATTEND Hospitalist
DX: J18.9 Pneumonia, unspecified organism (principal); G93.40 Encephalopathy, unspecified; J44.0 Chronic obstructive pulmonary disease with (acute) lower respiratory infection; E11.9 Type 2 diabetes mellitus without complications; I10 Essential (primary) hypertension; K59.00 Constipation, unspecified; F17.290 Nicotine dependence, other tobacco product, uncomplicated; R53.1 Weakness; E87.6 Hypokalemia; K57.90 Diverticulosis of intestine, part unspecified, without perforation or abscess without bleeding; I25.2 Old myocardial infarction; Z91.81 History of falling; Z86.73 Personal history of transient ischemic attack (TIA), and cerebral infarction without residual deficits; Z59.0 Homelessness
CPT/HCPCS: 70450; 71010; 74177; 80048; 80053; 80307; 81001; 82550; 82552; 82607; 82948; 83036; 83605; 83690; 83735; 84100; 84439; 84443; 84484; 85025; 85610; 85730; 86592; 87040; 87086; 93005; 94640; 94664; 96361; 96374; J0456; J0692; J0696; J1644; J3480; J7030; J7050; Q9967